=== PATIENT | female | born 1980 | race Caucasian/White ===

== ENCOUNTER 2019-01-26 19:13 | Inpatient (IN) | payer OTHER, SELFPAY ==
[2019-01-26 19:15] VITALS: BP 118/80; PULSE 149; RESP 19; TEMP 36.8; O2SAT 96; BMI 16.5
--- NOTE | 2019-01-26 19:51 | EKG12_ITS ---
Test Reason : SUBSTANCE ABUSE Blood Pressure : / mmHG Vent. Rate : 096 BPM Atrial Rate : 096 BPM P-R Int : 152 ms QRS Dur : 100 ms QT Int : 360 ms P-R-T Axes : 071 079 065 degrees QTc Int : 454 ms Normal sinus rhythm Normal ECG Confirmed by ALLISON JOSHUA, ROXI ([id number]), scientific editor BROCK FRIEDMAN ([id number]) on 01/29/2019 1:03:30 PM Referred By: Chaparro Sultana Confirmed By:ROXI COOPER MD
[2019-01-26 20:07] VITALS: BP 113/67; PULSE 94; RESP 23; O2SAT 96
[2019-01-26 20:10] LABS: Absolute Lymphocyte Count 1.09 X10^3/uL (0.83-4.51); Absolute Neutrophil Count 4.6 X10^3/uL (2.0-7.7); Basophil# 0.05 X10^3/uL; Basophil% 0.8 % (0-1); Eosinophil# 0.05 X10^3/uL; Eosinophils% 0.8 % (0-5); Hematocrit 41.6 % (37-47); Hemoglobin 14.3 g/dL (12.0-15.0); Lymphocyte # 1.09 X10^3/ul (4.0); Lymphocyte % 17.1 % (19-41); Mean Corp Hgb Conc 34.4 g/dL (32-36); Mean Corpuscular Hgb 32.6 pg (27.0-32.0); Mean Platelet Vol. 9.9 fl (6.2-12.0); Monocyte# 0.57 X10^3/uL; Monocyte% 8.9 % (0-10); NRBC Flagged by Analyzer 0 % (0-5); Neutrophil # 4.59 X10^3/uL (2.7-7.7); Neutrophil % 72.1 % (47-70); Platelet Count 165 K/mm3 (150-450); RBC Distribution Width CV 14.2 % (11.6-14.6); RBC Distribution Width SD 49.7 fl (35.1-43.9); Red Blood Count 4.38 M/mm3 (4.2-5.4); White Blood Count 6.4 K/mm3 (4.4-11.0)
[2019-01-26 20:20] LABS: Prothrombin Time (Protime)PT. 12.5 SECONDS (11.7-14.9)
[2019-01-26 20:21] LABS: Partial Thromboplast Time 24.7 Seconds (24.1-36.2)
--- NOTE | 2019-01-26 20:22 | ED.DCSUM_ITS ---
History of Present Illness Chief Complaint: Substance Abuse Informant: Patient, Significant Other Onset: Month(s) Timing: Continuous Quality: Consumes significant amount of alcohol daily Location: Palpitations, anxiety and tremors Current Severity: Moderate Maximum Severity: Moderate Worsened by: Decrease alcohol consumption Relieved by: Nothing Associated Symptoms: Nausea, bruising, agitation, palpitations Narrative: Patient is a 38-year-old woman who admits to consuming 1 to 2 L of vodka a day as well as a sixpack of beer. She was in detox and was sober for several years. She states this is affecting work. She states the past 3 weeks she has been drinking because of symptoms prior to going to work. She does report bruising easily. She denies blood in her urine. She denies black or maroon stool. She denies blood in emesis. She denies orthostatic symptoms. She denies cardiac or respiratory symptoms. She does admit to smoking. She denies drug use. Prior similar symptoms: Yes Recent Illness/Hospitalization: No - Past Medical History (1) Alcoholism /alcohol abuse Status: Acute Past Medical History - Allergies and Home Meds Allergies/Adverse Reactions: Allergies sulfamethoxazole [From Bactrim] Adverse Reaction (Verified 01/26/19 19:19) Nausea/Vom/Diarrhea trimethoprim [From Bactrim] Adverse Reaction (Verified 01/26/19 19:19) Nausea/Vom/Diarrhea Primary Care Physician: Tami Feliz NP-C [Primary Care Provider] - Surgical History: noncontributory Lives: Spouse/ Significant Other Smoking Status: Current every day smoker Alcohol: Heavy Drugs: None Review of Systems General: Reports: Malaise. Denies: Chills, Fever, Sweats, Weight loss Eyes: Denies: Visual changes - bilaterally, Blurred Vision - bilaterally, Diplopia ENT: Denies: Rhinorrhea, Sore throat Cardiovascular: Denies: Chest pain, Palpitations Respiratory: Denies: Dyspnea, Cough, Dyspnea on exertion Gastrointestinal: Reports: Abdominal pain, Nausea. Denies: Vomiting, Diarrhea, Constipation, Melena, Hematochezia Genitourinary: Denies: Dysuria, Hematuria, Frequency Musculoskeletal: Denies: Back pain, Extremity Pain Skin: Denies: Rash, Abrasions, Wounds Neurological: Denies: Headache, Weakness, Parasthesia, Numbness Hematologic: Reports: Easy bruising. Denies: Easy bleeding Physical Exam Vital Signs/Narrative: Vital Signs Temp Pulse Resp BP Pulse Ox 01/26/19 20:07 94 23 H 113/67 96 01/26/19 19:15 98.2 F 149 H 19 H 118/80 96 Inital Vital Signs reviewed: Yes General: Well nourished, Well developed, No Acute Distress Head: Normocephalic, Atraumatic Eyes: Perrl, EOMI. Negative for: Pale conjunctiva, Scleral icterus ENT: Moist mucous membranes, No rhinorrhea, TM's clear Neck: Supple, Nontender, No lymphadenopathy, No JVD, - Cardiovascular: Regular rhythm, No murmurs, Normal S1, Normal S2, Tachycardia Respiratory: No distress, CTA bilaterally, Chest nontender Abdomen: Soft, Nontender, Nondistended, Normal bowel sounds Rectal: Deferred Back: Nontender, Normal Inspection. Negative for: CVA tenderness, Spinal tenderness Extremities: Nontender, No edema Skin: Normal color, No rash, No Trauma. Negative for: Cyanosis, Diaphoresis, Jaundice Neurological: Alert, Oriented x3, Cranial nerves II-XII grossly intact, Normal Strength, Normal Sensation, Normal DTR - DTR 3-4+ symmetric. 4-5 beats of clonus at the ankles. Negative Babinski sign. Psychological: Normal affect, Normal Mood Diagnostic/Tx/Re-eval Laboratory Results 01/26/19 01/26/19 01/26/19 20:00 20:00 20:00 WBC 6.4 RBC 4.38 Hgb 14.3 Hct 41.6 MCV 95.0 MCH 32.6 H MCHC 34.4 RDW Std Deviation 49.7 H RDW Coeff of Opal 14.2 Plt Count 165 MPV 9.9 Immature Gran % (Auto) 0.300 Neut % (Auto) 72.1 H Lymph % (Auto) 17.1 L [place] % (Auto) 8.9 Eos % (Auto) 0.8 Baso % (Auto) 0.8 Absolute Neuts (auto) 4.6 Absolute Lymphs (auto) 1.09 Absolute Nucleated RBC 0.00 Nucleated RBC % 0 PT 12.5 INR 1.0 APTT 24.7 Sodium 137 Potassium 3.7 Chloride 103 Carbon Dioxide 22.0 Anion Gap 12 BUN 14 Creatinine 0.88 Estim Creat Clear Calc 65.04 Est GFR (MDRD) Af Amer 92 Est GFR (MDRD) Non-Af 76 BUN/Creatinine Ratio 16.0 Glucose 168 H Calcium 8.6 Total Bilirubin 0.70 AST 69 H ALT 70 H Alkaline Phosphatase 78 Total Protein 6.9 Albumin 3.8 Globulin 3.1 Albumin/Globulin Ratio 1.2 Ethyl Alcohol 01/26/19 20:00 WBC RBC Hgb Hct MCV MCH MCHC RDW Std Deviation RDW Coeff of Opal Plt Count MPV Immature Gran % (Auto) Neut % (Auto) Lymph % (Auto) [place] % (Auto) Eos % (Auto) Baso % (Auto) Absolute Neuts (auto) Absolute Lymphs (auto) Absolute Nucleated RBC Nucleated RBC % PT INR APTT Sodium Potassium Chloride Carbon Dioxide Anion Gap BUN Creatinine Estim Creat Clear Calc Est GFR (MDRD) Af Amer Est GFR (MDRD) Non-Af BUN/Creatinine Ratio Glucose Calcium Total Bilirubin AST ALT Alkaline Phosphatase Total Protein Albumin Globulin Albumin/Globulin Ratio Ethyl Alcohol 137.0 - EKG Initial EKG Interpretation: Sinus Rhythm - Ventricular rate 96. WV interval 150 ms. QRS duration 100 ms. QT duration 360 ms. Ismay is normal. The EKG is normal. - Medical Decision Making This patient is tachycardic EKG was obtained. Because of bruising easily PT/INR was obtained to assess liver function. Alcohol level was drawn. She states she had her last drink at approximately 1700. CBC was obtained to assess H&H. Electrolyte panel was obtained as well to assess for specifically hypokalemia and hyponatremia. Patient CIWAr?score is 19. Alcohol level is 137. There is no evidence of coagulopathy. ED Disposition - Plan for ED Patient: Disposition: Home or Assisted Living Diagnosis: Sinus tachycardia seen on quality assurance monitor final, Alcohol dependence with withdrawal Referrals: Tami Feliz, SANG-C [Primary Care Provider] -
[2019-01-26 20:36] LABS: ALB/GLOB Ratio 1.2 RATIO (0.9-2.4); AST(SGOT) 69 U/L (15-37); Alanine Aminotransfer ALT/SGPT 70 U/L (13-56); Albumin, Serum 3.8 g/dL (3.2-5.0); Alkaline Phosphatase 78 U/L (45-117); Anion Gap 12 (5-15); BUN 14 mg/dL (7-18); Calcium,Total 8.6 mg/dL (8.5-10.1); Chloride 103 mmol/L (98-107); Creatinine, Serum 0.88 mg/dL (0.55-1.02); EST Glomerular Filtration Rate 76 mL/min (>60); Est Glom Filt Rate - Afr Amer 92 mL/min (>60); Estimated Creatinine Clearance 65.04 ml/min; Globulin 3.1 g/dL (2.2-4.2); Glucose 168 mg/dL (74-106); Potassium 3.7 mmol/L (3.5-5.1); Protein, Total 6.9 g/dL (6.4-8.2); Sodium Level 137 mmol/L (136-145)
[2019-01-26 21:00] VITALS: BP 105/69; PULSE 98; RESP 16; O2SAT 98
[2019-01-26] MEDS: chlordiazePOXIDE 25 MG Capsule PO ×2 (21:25→23:33)
--- NOTE | 2019-01-26 22:03 | PCM.HP.STD ---
Problem List (1) Alcohol dependence with withdrawal Status: Acute History of Present Illness Date of Admission: 01/26/19 Chief Complaint: alcohol withdrawal The patient is a 38 year old F with a significant history of depression and anxiety; tobacco abuse; marijuana abuse; alcohol dependence who presented to the emergency department because of withdrawal symptoms and a desire to be helped to stop drinking. On the day of presentation the patient decided not to drink. However because she felt nauseous and she was vomiting; had diarrhea; diaphoresis; headache; muscle pain to the point that she could not stand; she drank half a liter of vodka. Her symptoms been went away she then proceeded to the emergency department. At the emergency department reportedly patient was having ankle clonus; and was shaky for which reason she was given Librium and phenobarbital. At baseline patient drinks about 1 to 2 L of vodka daily as well as a 6-15 bottle of beers. She thinks that she has been drinking for about 16 years. She went to a rehab around 2016 for about a year and a half. She was about 2 years sober. She thinks she resumed drinking again in 2016. Reportedly her drinking is affecting her ability to work. Past Medical History Medical History: Medical History (Last Updated 01/27/19 @ 01:17 by Chaparro Sultana MD) Alcohol dependence F10.20 Allergies sulfamethoxazole [From Bactrim] Adverse Reaction (Verified 01/26/19 19:19) Nausea/Vom/Diarrhea trimethoprim [From Bactrim] Adverse Reaction (Verified 01/26/19 19:19) Nausea/Vom/Diarrhea Home Medications: Ambulatory Orders Medication Instructions Recorded Escitalopram Oxalate [Lexapro] 20 mg PO DAILY 05/18/17 Surgical History: tonsillectomy, - - section x2 Psychiatric History: Anxiety, Depression Lives: With Family Smoking Status: Current every day smoker Alcohol: Heavy Drugs: Marijuana Review of Systems Constitutional: Denies: Chills, Fever, Weight Change HEENT: Reports: Head Aches, Sinus Drainage. Denies: Sinus Congestion Cardiovascular: Denies: Chest Pain, Palpitations Respiratory: Denies: Cough, Shortness of breath at rest, Sputum production Gastrointestinal: Reports: Diarrhea, Nausea, Vomiting. Denies: Abdominal Pain Genitourinary: Denies: Dysuria Musculoskeletal: Denies: Joint Pain, Joint Tenderness Skin: Denies: Rash, Wounds Neurological: Reports: Tremor. Denies: Focal weakness, Numbness, Tingling Psychiatric: Reports: Anxiety, Depression. Denies: Homicidal Ideations, Suicidal Ideations Hematologic/ Lymphatic: Denies: Easy Bruising, Easy Bleeding VTE Information - Inpt Only VTE Present on Admission: No VTE Mechan Device Prophylaxis: None VTE Pharm Prophylaxis ordered?: No Reason prophylaxis not ordered:: Treatment Not Indicated - Low risk; encouraged to ambulate. Patient Problems: Active and Suspected Problems (Last Updated 01/27/19 @ 01:17 by Chaparro Sultana MD) Alcoholism /alcohol abuse (Acute) Sinus tachycardia seen on diagnostic cardiac sonographer (Acute) Alcohol dependence with withdrawal (Acute) - Physical Exam General: Alert, Oriented x3, Cooperative HEENT: Atraumatic, PERRLA, EOMI, Normocephalic Neck: Supple, No JVD, Negative Carotid Bruits Lungs: Clear to auscultation, Normal air movement Cardiovascular: Regular rate, No murmurs Abdomen: Bowel Sounds Present, Soft, Non Tender Extremities: No edema, Capillary Refill Less than 3 Seconds Skin: No rashes, No breakdown Musculoskeletal: No Tenderness to Palpation of Joints or Extremities Neurological: Cranial nerves II-XII grossly intact, - - Tremors on outstretched hands. Psych/Mental Status: Normal Affect, Appropriate Vital Signs Temp Pulse Resp BP Pulse Ox 98.2 F 98 16 105/69 98 01/26/19 19:15 01/26/19 21:00 01/26/19 21:00 01/26/19 21:00 01/26/19 21:00 Oxygen Delivery Method Room Air Weight: 48 kg Body Mass Index (BMI) 16.5 Laboratory Tests Past 24 Hrs 01/26/19 01/26/19 01/26/19 20:00 20:00 20:00 WBC 6.4 RBC 4.38 Hgb 14.3 Hct 41.6 MCV 95.0 MCH 32.6 H MCHC 34.4 RDW Std Deviation 49.7 H RDW Coeff of Opal 14.2 Plt Count 165 MPV 9.9 Immature Gran % (Auto) 0.300 Neut % (Auto) 72.1 H Lymph % (Auto) 17.1 L [place] % (Auto) 8.9 Eos % (Auto) 0.8 Baso % (Auto) 0.8 Absolute Neuts (auto) 4.6 Absolute Lymphs (auto) 1.09 Absolute Nucleated RBC 0.00 Nucleated RBC % 0 PT 12.5 INR 1.0 APTT 24.7 Sodium 137 Potassium 3.7 Chloride 103 Carbon Dioxide 22.0 Anion Gap 12 BUN 14 Creatinine 0.88 Estim Creat Clear Calc 65.04 Est GFR (MDRD) Af Amer 92 Est GFR (MDRD) Non-Af 76 BUN/Creatinine Ratio 16.0 Glucose 168 H Calcium 8.6 Total Bilirubin 0.70 AST 69 H ALT 70 H Alkaline Phosphatase 78 Total Protein 6.9 Albumin 3.8 Globulin 3.1 Albumin/Globulin Ratio 1.2 Ethyl Alcohol 01/26/19 20:00 WBC RBC Hgb Hct MCV MCH MCHC RDW Std Deviation RDW Coeff of Opal Plt Count MPV Immature Gran % (Auto) Neut % (Auto) Lymph % (Auto) [place] % (Auto) Eos % (Auto) Baso % (Auto) Absolute Neuts (auto) Absolute Lymphs (auto) Absolute Nucleated RBC Nucleated RBC % PT INR APTT Sodium Potassium Chloride Carbon Dioxide Anion Gap BUN Creatinine Estim Creat Clear Calc Est GFR (MDRD) Af Amer Est GFR (MDRD) Non-Af BUN/Creatinine Ratio Glucose Calcium Total Bilirubin AST ALT Alkaline Phosphatase Total Protein Albumin Globulin Albumin/Globulin Ratio Ethyl Alcohol 137.0 Assessment/Plan All Active Problems (Last Updated 01/27/19 @ 01:17 by Chaparro Sultana MD) Alcoholism /alcohol abuse (Acute) Sinus tachycardia seen on diagnostic cardiac sonographer (Acute) Alcohol dependence with withdrawal (Acute) The patient is a 38 year old F with a significant history of alcohol dependence who presented to the emergency department because of withdrawal symptoms and a desire to be helped to stop drinking. Alcohol dependence and withdrawal On presentation her alcohol level was 137. Patient admits excessive alcohol drinking. At the emergency department patient received Librium and phenobarbital because she was shaking. We will continue patient on a CIWA protocol with [facility]. Multivitamins; thiamine and folic acid as well as other supportive medications ordered. PRN Zofran ordered.. Tylenol ordered. PRN Ativan ordered. Patient was counseled. [facility] consult. Tobacco abuse Counseled Nicotine patch ordered Marijuana use Counseled DVT prophylaxis low risk Encouraged to ambulate Code Visit Inpatient E&M: 57803 Init Hosp L3
[2019-01-26 22:18] VITALS: BP 111/75; PULSE 87; RESP 19; O2SAT 96
[2019-01-26 22:59] VITALS: BMI 16.5
[2019-01-26 23:06] VITALS: BMI 16.5
[2019-01-26 23:32] VITALS: PULSE 86
[2019-01-26] MEDS: Dicyclomine 10 MG Capsule 20 MG PO (23:33)
[2019-01-26] MEDS: Methocarbamol 750 MG Tablet PO (23:33)
[2019-01-26] MEDS: hydrOXYzine PAM 25 MG Capsule 50 MG PO (23:34)
[2019-01-26] MEDS: Acetaminophen 325 MG Tablet 650 MG PO (23:48)
[2019-01-27] VITALS (12 sets, daily range): BP systolic 106–131; BP diastolic 62–72; PULSE 77–95; RESP 16–18; TEMP 36.7–37.1; O2SAT 97–100
[2019-01-27] MEDS: Dicyclomine 10 MG Capsule 20 MG PO ×3 (05:34→22:28)
[2019-01-27] MEDS: Methocarbamol 750 MG Tablet PO ×3 (05:34→22:28)
[2019-01-27] MEDS: Acetaminophen 325 MG Tablet 650 MG PO (05:35)
[2019-01-27] MEDS: chlordiazePOXIDE 25 MG Capsule PO ×3 (05:35→17:59)
[2019-01-27] MEDS: hydrOXYzine PAM 25 MG Capsule 50 MG PO ×2 (05:35→12:46)
--- NOTE | 2019-01-27 06:48 | PN_ITS ---
Patient Problems: Active and Suspected Problems (Last Updated 01/27/19 @ 01:17 by Chaparro Sultana MD) Alcoholism /alcohol abuse (Acute) Sinus tachycardia seen on cardiac cath lab manager (Acute) Alcohol dependence with withdrawal (Acute) Subjective: Patient overnight with some improvement but ongoing tremors, diaphoresis, myalgias and general malaise. Today she is requesting transition of her IV PRN Ativan to oral as she notes that her IV is bothering her. Discussed her nutritional status and encouraged her to increase her oral intake with pending nutrition evaluation. Patient notes that her only prior history of rehab was several years prior. Patient denies fevers, chills, nausea, emesis, abdominal pain, chest pain or dyspnea. Objective: Physical Examination: General: awake, alert, oriented x 3 and cooperative, laying in the bed, mildly diaphoretic, mild tremors present. Skin: normal color, turgor, no icterus, cyanosis. HEENT: AT/NC, EOMI, PERRLA, dry MM. Lungs: CTA bilaterally, moderate effort, moderate decrease BL bases, no rales, ronchi or wheezing. Heart: Regular rate and rhythm; no gallop, rub audible. Abdomen: soft, thin cachectic habitus, NTTP, ND. Extremities: no cyanosis, clubbing, or edema. Neurological: patient awake, alert, oriented x 3; cognitive function intact; pupils equally reactive to light and accomodation; cranial nerves II-XII grossly normal, moving all 4 extremities, no focal deficits, strength moderately to severely global decrease secondary to acute presentation, mildly tremulous. Psychiatric: affect appears fatigued, no acute evidence of depressive or anxiety feelings. Vitals/I&O's: Vital Signs Temp Pulse Resp BP Pulse Ox 98.2 F 82 16 113/72 100 01/27/19 02:33 01/27/19 03:35 01/27/19 02:33 01/27/19 02:33 01/27/19 02:33 Oxygen Delivery Method Room Air Weight: 107 lb Body Mass Index (BMI) 16.5 Laboratory Results 01/26/19 20:00: WBC 6.4, RBC 4.38, Hgb 14.3, Hct 41.6, MCV 95.0, MCH 32.6 H, MCHC 34.4, RDW Std Deviation 49.7 H, RDW Coeff of Opal 14.2, Plt Count 165, MPV 9.9, Immature Gran % (Auto) 0.300, Neut % (Auto) 72.1 H, Lymph % (Auto) 17.1 L, [place] % (Auto) 8.9, Eos % (Auto) 0.8, Baso % (Auto) 0.8, Absolute Neuts (auto) 4.6, Absolute Lymphs (auto) 1.09, Absolute Nucleated RBC 0.00, Nucleated RBC % 0 01/26/19 20:00: PT 12.5, INR 1.0, APTT 24.7 01/26/19 20:00: Sodium 137, Potassium 3.7, Chloride 103, Carbon Dioxide 22.0, Anion Gap 12, BUN 14, Creatinine 0.88, Estim Creat Clear Calc 65.04, Est GFR (MDRD) Af Amer 92, Est GFR (MDRD) Non-Af 76, BUN/Creatinine Ratio 16.0, Glucose 168 H, Calcium 8.6, Total Bilirubin 0.70, AST 69 H, ALT 70 H, Alkaline Phosphatase 78, Total Protein 6.9, Albumin 3.8, Globulin 3.1, Albumin/Globulin Ratio 1.2 01/26/19 20:00: Ethyl Alcohol 137.0 Current Medications Acetaminophen (Tylenol) 650 mg PO Q6H PRN PRN PRN Reason: Mild Pain (1-3)/Temp > 100.7 F Last Admin: 01/27/19 05:35 Dose: 650 mg Documented by: Chlordiazepoxide (Librium) 50 mg PO Q6H NARINDER; Taper Stop: 01/30/19 01:59 Last Admin: 01/27/19 05:35 Dose: 50 mg Documented by: Dextrose (D50w Syringe) 0 gm IV X1 PRN; Protocol PRN Reason: Hypoglycemia Dicyclomine HCl (Bentyl) 20 mg PO Q6H PRN PRN PRN Reason: abdominal discomfort Last Admin: 01/27/19 05:34 Dose: 20 mg Documented by: Escitalopram Oxalate (Lexapro) 20 mg PO DAILY NARINDER Folic Acid (Folic Acid) 1 mg PO DAILYCM NARINDER Stop: 01/29/19 08:01 Glucagon () 1 mg IM .X1 PRN PRN Reason: Hypoglycemia Hydroxyzine Pamoate (Vistaril Pamoate Capsule) 50 mg PO Q6H PRN PRN PRN Reason: Mild Anxiety (score 1/3) Last Admin: 01/27/19 05:35 Dose: 50 mg Documented by: Lorazepam (Ativan) 1 mg IV Q4H PRN PRN PRN Reason: Severe Anxiety Lorazepam (Ativan) 2 mg IV X1 PRN PRN Reason: Seizure Magnesium Hydroxide (Milk Of Magnesia) 30 ml PO DAILY PRN PRN PRN Reason: Constipation Methocarbamol (Methocarbamol) 750 mg PO Q6H PRN PRN PRN Reason: Muscle Aches Last Admin: 01/27/19 05:34 Dose: 750 mg Documented by: Multivitamins (Multivitamin) 1 tablet PO DAILYCM NARINDER Nicotine (Nicoderm Cq (Pbkc)) 21 mg TRANSDERM. DAILY NARINDER Last Admin: 01/27/19 05:43 Dose: 21 mg Documented by: Nutritional Formula (Lactose Free) (Ensure Enlive) 120 ml PO 4X/DAY NARINDER Ondansetron HCl (Zofran) 4 mg IV Q8H PRN PRN PRN Reason: NAUSEA/VOMITING Sodium Chloride () 10 - 40 ml IV UD PRN PRN Reason: SALINE FLUSH Thiamine HCl (Vitamin B1) 100 mg PO DAILYCM NARINDER Stop: 01/29/19 08:01 Medical Necessity - Tobacco Use Smoking Status: Current every day smoker Assessment/Plan All Active Problems (Last Updated 01/27/19 @ 01:17 by Chaparro Sultana MD) Alcoholism /alcohol abuse (Acute) Sinus tachycardia seen on cardiac cath lab manager (Acute) Alcohol dependence with withdrawal (Acute) The patient is a 38 y/o F w/ PMHx: Anxiety and Depression, Tobacco use, Cannabis use, Malnutrition, EtOH Abuse who presents to the [facility] ED on 01/26/19 with history of attempted self sobriety, noting that she had attempted to avoid intake over the day of presentation with noted nausea, emesis, headache, myalgia, tremors and hallucinations. (1) Acute EtOH Withdrawal: Admitted to [facility] on telemetry, routine CBC, CMP obtained, pending testing, pending mag and phos, initiated and continue on [facility] service protocol with taper course of librium, as needed Seroquel, Catapres, Bentyl, Vistaril, IV fluids, IV antiemetics, Tylenol. Once patient clinically improved and completion of taper nearing will plan [facility] assistance for transition to next level of rehabilitation care. Mag, phos pending. Maintain on CIWA protocol. (2) Anxiety and depression: Contributing to #1, will continue home Lexapro. Would benefit from counseling outpatient. (3) Severe protein calorie malnutrition: Evidenced per habitus, BMI, muscle and fat loss, supplementation with Ensure, multivitamin, folic acid and thiamine as noted, nutrition consulted. (4) Tobacco Abuse: Encouraged cessation, inpatient consultation per RT, NR if desired. (5) DVT Prophylaxis: Low risk, ambulation. Code Visit Inpatient E&M: 32795 Subs Hosp L2
[2019-01-27 07:35] LABS: Magnesium 1.9 mg/dL (1.6-2.6); Phosphorus 1.9 mg/dL (2.5-4.9)
[2019-01-27] MEDS: Ondansetron ODT 4 MG Tablet PO ×2 (09:45→22:28)
[2019-01-27] MEDS: Multivitamins,Therapeutic Tablet 1 TABLET PO (09:46)
[2019-01-27] MEDS: QUEtiapine 25 MG Tablet PO ×2 (09:46→16:28)
[2019-01-27] MEDS: Thiamine Hydrochloride 100 MG Tablet PO (09:46)
[2019-01-27] MEDS: Folic Acid 1 MG Tablet PO (09:46)
[2019-01-27] MEDS: Escitalopram Oxalate 20 MG Tablet PO (09:46)
[2019-01-27 11:10] LABS: Internal QC Validated? YES +Cl - CLEAR BKGD; Pregnancy, Urine Negative Negative
[2019-01-27] MEDS: 0.9% NaCl IVPB Med Flush (250 mL) 15 ML IV (12:45)
[2019-01-27] MEDS: 0.9% NaCl Peripheral Flush Adult/Peds IV (12:47)
[2019-01-27] MEDS: LORazepam 1 MG Tablet PO ×2 (16:28→22:28)
[2019-01-27] MEDS: traZODone 50 MG Tablet PO (22:28)
[2019-01-27] MEDS: Ibuprofen 600 MG Tablet PO (22:28)
[2019-01-28] VITALS (10 sets, daily range): BP systolic 91–116; BP diastolic 64–79; PULSE 67–90; RESP 14–18; TEMP 36.5–36.8; O2SAT 94–100
[2019-01-28] MEDS: chlordiazePOXIDE 25 MG Capsule PO ×2 (02:04→19:56)
[2019-01-28] MEDS: QUEtiapine 25 MG Tablet PO ×2 (02:04→20:08)
[2019-01-28] MEDS: Acetaminophen 325 MG Tablet 650 MG PO ×3 (02:08→22:39)
[2019-01-28] MEDS: LORazepam 1 MG Tablet PO ×3 (02:50→22:39)
--- NOTE | 2019-01-28 06:49 | PCM.PN.HOSP ---
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 This morning she is very fatigued and falling back asleep quickly during examination. Reviewed medications with nursing staff and she did receive Librium and Ativan near 3 AM. Patient notes that tremors have markedly improved. Patient denies fevers, chills, nausea, emesis, abdominal pain, chest pain or dyspnea. Objective: Physical Examination: General: awakens to stimuli, less alert this AM, oriented to self, place, recent events, but falling back asleep, laying in the bed, NAD. Skin: normal color, turgor, no icterus, cyanosis. HEENT: AT/NC, EOMI, PERRLA, improved MMM. Lungs: CTA bilaterally, moderate effort, moderate decrease BL bases, no rales, ronchi or wheezing. Heart: Regular rate and rhythm; no gallop, rub audible. Abdomen: soft, thin cachectic habitus, NTTP, ND. Extremities: no cyanosis, clubbing, or edema. Neurological: awakens to stimuli, less alert this AM, oriented to self, place, recent events, but falling back asleep, laying in the bed, NAD; pupils equally reactive to light and accomodation; cranial nerves II-XII grossly normal, moving all 4 extremities, no focal deficits, strength remains moderately to severely global decreased given recent sedative regimen, tremors resolved. Psychiatric: affect appears fatigued, no acute evidence of depressive or anxiety feelings. Vitals/I&O's: Vital Signs Temp Pulse Resp BP Pulse Ox 97.8 F 77 16 116/67 98 01/28/19 02:01 01/28/19 02:01 01/28/19 02:01 01/28/19 02:01 01/28/19 02:01 Oxygen Delivery Method Room Air Weight: 106 lb 15.986 oz Body Mass Index (BMI) 16.5 Intake and Output for Last 24 Hours 01/26/19 01/27/19 01/28/19 23:59 23:59 23:59 Intake Total 900 / 1100 200 / 200 Balance 900 / 1100 200 / 200 Laboratory Results 01/26/19 20:00: Phosphorus 1.9 L, Magnesium 1.9 01/27/19 10:10: Urine Test Negative Current Medications Acetaminophen (Tylenol) 650 mg PO Q6H PRN PRN PRN Reason: Mild Pain (1-3)/Temp > 100.7 F Last Admin: 01/28/19 02:08 Dose: 650 mg Documented by: Al Hydroxide/Mg Hydroxide (Mylanta Ii) 30 ml PO Q6H PRN PRN PRN Reason: dyspesia Bisacodyl (Dulcolax) 10 mg RECTAL DAILY PRN PRN Reason: Constipation Chlordiazepoxide (Librium) 50 mg PO Q8H NARINDER; Taper Stop: 01/30/19 01:59 Last Admin: 01/28/19 02:04 Dose: 50 mg Documented by: Dextrose (D50w Syringe) 0 gm IV X1 PRN; Protocol PRN Reason: Hypoglycemia Dicyclomine HCl (Bentyl) 20 mg PO Q6H PRN PRN PRN Reason: abdominal discomfort Last Admin: 01/27/19 22:28 Dose: 20 mg Documented by: Escitalopram Oxalate (Lexapro) 20 mg PO DAILY [facility] Last Admin: 01/27/19 09:46 Dose: 20 mg Documented by: [facility] Acid) [facility] Stop: 01/29/19 08:01 Last Admin: 01/27/19 09:46 Dose: 1 mg Documented by: Glucagon () 1 mg IM .X1 PRN PRN Reason: Hypoglycemia Hydroxyzine Pamoate (Vistaril Pamoate Capsule) 50 mg PO Q6H PRN PRN PRN Reason: Mild Anxiety (score 1/3) Last Admin: 01/27/19 12:46 Dose: 50 mg Documented by: Sodium Chloride () 250 mls @ 15 mls/hr IV .[id number] PRN PRN Reason: SALINE FLUSH Last Admin: 01/27/19 12:45 Dose: 15 mls/hr Documented by: Ibuprofen (Motrin) 600 mg PO Q8H PRN PRN PRN Reason: Mild-Moderate Pain (1-5/10) Last Admin: 01/27/19 22:28 Dose: 600 mg Documented by: Loperamide HCl (Imodium) 2 - 4 mg PO UD PRN PRN Reason: LOOSE STOOLS Lorazepam (Ativan) 2 mg IV X1 PRN PRN Reason: Seizure Lorazepam (Ativan) 1 mg PO Q4H PRN PRN PRN Reason: EtOH withdrawal breakthrough Last Admin: 01/28/19 02:50 Dose: 1 mg Documented by: Magnesium Hydroxide (Milk Of Magnesia) 30 ml PO DAILY PRN PRN PRN Reason: Constipation Methocarbamol (Methocarbamol) 750 mg PO Q6H PRN PRN PRN Reason: Muscle Aches Last Admin: 01/27/19 22:28 Dose: 750 mg Documented by: Multivitamins (Multivitamin) [facility] Last Admin: 01/27/19 09:46 Dose: 1 tablet Documented by: Nicotine (Nicoderm Cq (Pbkc)) 21 mg TRANSDERM. DAILY [facility] Last Admin: 01/27/19 05:43 Dose: 21 mg Documented by: Nutritional Formula (Lactose Free) (Ensure Enlive) 120 ml PO 4X/DAY [facility] Last Admin: 01/27/19 22:11 Dose: Not Given Documented by: Ondansetron HCl (Zofran) 4 mg IV Q8H PRN PRN PRN Reason: NAUSEA/VOMITING Ondansetron HCl (Zofran Odt) 4 mg PO Q6H PRN PRN PRN Reason: NAUSEA Last Admin: 01/27/19 22:28 Dose: 4 mg Documented by: Quetiapine Fumarate (Seroquel) 25 mg PO Q6H PRN PRN PRN Reason: anxiety, agitation Last Admin: 01/28/19 02:04 Dose: 25 mg Documented by: Senna (Senokot) 1 tablet PO QHS PRN PRN PRN Reason: Constipation Sodium Chloride () 10 - 40 ml IV UD PRN PRN Reason: SALINE FLUSH Last Admin: 01/27/19 12:47 Dose: 10 ml Documented by: Thiamine HCl (Vitamin B1) [facility] Stop: 01/29/19 08:01 Last Admin: 01/27/19 09:46 Dose: 100 mg Documented by: Trazodone HCl (Desyrel) 50 mg PO QHS [facility] Last Admin: 01/27/19 22:28 Dose: 50 mg Documented by: Medical Necessity - Tobacco Use Smoking Status: Current every day smoker Assessment/Plan All Active Problems (Last Updated 01/27/19 @ 01:17 by Chaparro Sultana MD) Alcoholism /alcohol abuse (Acute) 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 (1) Acute EtOH Withdrawal: Admitted to [facility] on telemetry, CBC unremarkable, CMP w/ elevated LFTs, mild and likely chronic, unremarkable coags, initiated and continue on [facility] service protocol with taper course of librium, as needed Seroquel, Catapres, Bentyl, Vistaril, IV fluids, IV antiemetics, Tylenol. Once patient clinically improved and completion of taper nearing will plan [facility] assistance for transition to next level of rehabilitation care. Mag 1.9, Phos 1.9, supplementation administered. Maintain on CIWA protocol. (2) Anxiety and depression: Contributing to #1, will continue home Lexapro. Would benefit from counseling outpatient. (3) Severe protein calorie malnutrition: Evidenced per habitus, BMI, muscle and fat loss, supplementation with Ensure, multivitamin, folic acid and thiamine as noted, nutrition consulted. (4) Chronically Elevated LFTs: Likely secondary to EtOH abuse, admission AST/ALT 69/70, will encourage follow-up outpatient with PCP for further assessment. (5) Tobacco Abuse: Encouraged cessation, inpatient consultation per RT, NR if desired. (6) DVT Prophylaxis: Low risk, ambulation. Code Visit Inpatient E&M: 17954 Subs Hosp L2
[2019-01-28] MEDS: Thiamine Hydrochloride 100 MG Tablet PO (10:12)
[2019-01-28] MEDS: Multivitamins,Therapeutic Tablet 1 TABLET PO (10:12)
[2019-01-28] MEDS: Folic Acid 1 MG Tablet PO (10:12)
[2019-01-28] MEDS: Escitalopram Oxalate 20 MG Tablet PO (10:12)
[2019-01-28] MEDS: Dicyclomine 10 MG Capsule 20 MG PO ×2 (14:47→22:38)
[2019-01-28] MEDS: Ondansetron ODT 4 MG Tablet PO (14:47)
[2019-01-28] MEDS: Methocarbamol 750 MG Tablet PO ×2 (14:47→22:38)
[2019-01-28] MEDS: hydrOXYzine PAM 25 MG Capsule 50 MG PO (14:49)
[2019-01-28] MEDS: Ibuprofen 600 MG Tablet PO (20:07)
[2019-01-28] MEDS: traZODone 50 MG Tablet PO (22:22)
[2019-01-29] VITALS (8 sets, daily range): BP systolic 101–116; BP diastolic 47–72; PULSE 67–84; RESP 14–16; TEMP 36.2–36.3; O2SAT 94–100
[2019-01-29] MEDS: hydrOXYzine PAM 25 MG Capsule 50 MG PO (00:31)
[2019-01-29] MEDS: chlordiazePOXIDE 25 MG Capsule PO (02:30)
[2019-01-29] MEDS: QUEtiapine 25 MG Tablet PO ×2 (02:30→08:11)
[2019-01-29] MEDS: LORazepam 1 MG Tablet PO ×2 (02:42→06:49)
[2019-01-29] MEDS: Ibuprofen 600 MG Tablet PO (05:02)
[2019-01-29] MEDS: Methocarbamol 750 MG Tablet PO (05:02)
[2019-01-29] MEDS: Dicyclomine 10 MG Capsule 20 MG PO (05:10)
[2019-01-29] MEDS: Ondansetron ODT 4 MG Tablet PO (05:10)
[2019-01-29] MEDS: Folic Acid 1 MG Tablet PO (08:03)
[2019-01-29] MEDS: Thiamine Hydrochloride 100 MG Tablet PO (08:03)
[2019-01-29] MEDS: Multivitamins,Therapeutic Tablet 1 TABLET PO (08:03)
[2019-01-29] MEDS: Escitalopram Oxalate 20 MG Tablet PO (08:03)
[2019-01-29] MEDS: Acetaminophen 325 MG Tablet 650 MG PO (08:11)
[2019-01-29 08:13] LABS: ALB/GLOB Ratio 1.2 RATIO (0.9-2.4); AST(SGOT) 44 U/L (15-37); Alanine Aminotransfer ALT/SGPT 63 U/L (13-56); Albumin, Serum 3.7 g/dL (3.2-5.0); Alkaline Phosphatase 71 U/L (45-117); Anion Gap 8 (5-15); BUN 10 mg/dL (7-18); BUN/Creat Ratio 14.7 RATIO (10-20); Calcium,Total 8.9 mg/dL (8.5-10.1); Chloride 106 mmol/L (98-107); Creatinine, Serum 0.68 mg/dL (0.55-1.02); EST Glomerular Filtration Rate 102 mL/min (>60); Est Glom Filt Rate - Afr Amer 123 mL/min (>60); Globulin 3.1 g/dL (2.2-4.2); Glucose 82 mg/dL (74-106); Magnesium 1.9 mg/dL (1.6-2.6); Potassium 4.2 mmol/L (3.5-5.1); Protein, Total 6.8 g/dL (6.4-8.2); Sodium Level 142 mmol/L (136-145)
--- NOTE | 2019-01-29 09:28 | PCM.DC ---
- Discharge Diagnoses Current Active Problems: Current Active and Chronic Problems (Last Updated 01/27/19 @ 01:17 by Chaparro Sultana MD) Alcoholism /alcohol abuse (Acute) Sinus tachycardia seen on cardiac specialist (Acute) Alcohol dependence with withdrawal (Acute) Reason(s) for Visit for Discharge Instructions: Alcohol withdrawal You will use the following diet at home:: Regular Your food should be the consistency of: Regular Your liquids should be the consistency of: Regular/Thin Discharge Activity: Return to Normal Activity Additional Instructions: You are strongly advised to abstain from alcohol. Follow-up with your outpatient program as planned. Continue to take mylanta and famotidine for abdominal discomfort and bloatedness. Avoid taking Ibuprofen until your abdominal upset settles. Continue to take tylenol as directed as needed for pain. You have been strongly advised to quit smoking. Allergies/Adverse Reactions: Allergies sulfamethoxazole [From Bactrim] Adverse Reaction (Verified 01/26/19 19:19) Nausea/Vom/Diarrhea trimethoprim [From Bactrim] Adverse Reaction (Verified 01/26/19 19:19) Nausea/Vom/Diarrhea Medications to take at Discharge Escitalopram Oxalate [Lexapro] 20 mg PO DAILY 05/18/17 Acetaminophen [Tylenol Tablet] 650 mg PO Q6H PRN PRN tablet 01/29/19 Ensure Enlive 120 ml PO 4X/DAY #120 liquid 01/29/19 Famotidine [Pepcid] 20 mg PO BID #60 tab 01/29/19 Magnesium Oxide [Mag-Ox 400] 400 mg PO TIDCM #90 tab 01/29/19 Multivitamins,Therapeutic [Multivitamin] 1 tab PO DAILYCM #30 tab 01/29/19 Nicotine [Nicoderm Cq] 21 mg TRANSDERM. DAILY #30 patch 01/29/19 The following prescriptions were given: Ensure Enlive 120 ml PO 4X/DAY #120 liquid Transmission Status: Pending to [facility] [place] [place] [facility] Magnesium Oxide [Mag-Ox 400] 400 mg PO TIDCM #90 tab Transmission Status: Pending to [facility] [place] [facility] Multivitamins,Therapeutic [Multivitamin] 1 tab PO DAILYCM #30 tab Transmission Status: Pending to [facility] [place] [facility] Nicotine [Nicoderm Cq] 21 mg TRANSDERM. DAILY #30 patch Transmission Status: Pending to [facility] [place] [facility] Famotidine [Pepcid] 20 mg PO BID #60 tab Transmission Status: Pending to [facility] [place] [facility] Primary Care Physician: Tami Feliz NP-C [Primary Care Provider] - Please follow up with your Primary Care Physician in: within 1-2 weeks or as scheduled Test Results: Test results from this visit will be discussed in further detail at your follow-up appointment, if applicable. Proposed Discharge Date: 01/29/19
--- NOTE | 2019-01-29 09:32 | PCM.DC.SUM ---
Discharge Date and Diagnosis Date of Admission: 01/26/19 Date of Discharge: 01/29/19 - Primary Discharge Diagnosis Active and Suspected Problems (Last Updated 01/27/19 @ 01:17 by Chaparro Sultana MD) Acute alcohol withdrawal Severe protein calorie malnutrition Nicotine dependence Hospital Course and Treatment Consultations 01/27/19 01:13 Consult: [facility] [employer] Routine Consulting Provider: Consulted Physician Type:: Other * Specify below * Reason for consult:: Alcohol dependence and withdrawal Operations: None Procedures: None Summary of Care Provided: The patient is a 38 year old F with past medical history of polysubstance use, anxiety/depression, comes in with complaints of nausea, vomiting, headache, myalgia, tremors and hallucinations and was admitted and managed as acute alcohol withdrawal. She admits to drinking about 1 to 2 L of vodka every day as well as 6-15 bottles of beer. She has been drinking since she was 15 years old. She was able to quit and was sober for 2 years until her relapse. She was admitted and did well on the [facility] protocol. She was continued on her home Lexapro. She has chronically elevated LFTs which was secondary to her alcohol abuse. She was started on nutritional supplements for severe protein calorie malnutrition as well as multivitamin, folic acid, thiamine, and was followed by a dietitian. She was found to be hypomagnesemic that was replaced. She was maintained on nicotine replacement with patches for which she was prescribed. She will follow-up with outpatient program such as 180 and also with her pastorial team. Subjective: On the day of discharge, patient was seen and examined. Complaining of mild abdominal discomfort with bloating. She was prescribed Mylanta and famotidine. - Physical Exam General: Alert, Oriented x3, Cooperative, No apparent distress HEENT: Atraumatic, PERRLA, EOMI, Normocephalic Oral: Moist Mucosa Neck: Supple Lungs: Clear to auscultation, Normal air movement Cardiovascular: Regular rate, Regular Rhythm, Normal S1, Normal S2, No murmurs Abdomen: Bowel Sounds Present, Soft, Non Tender, Non-Distended, No Hepato-splenomegaly Extremities: No edema Skin: No rashes, No breakdown Musculoskeletal: No Tenderness to Palpation of Joints or Extremities Lymphatic: No Cervical, Supraclavicular, or Inguinal Adenopathy Neurological: Cranial nerves II-XII grossly intact, Neuro grossly intact Psych/Mental Status: Normal Affect, Appropriate Vital Signs Temp Pulse Resp BP Pulse Ox 97.4 F L 84 16 116/64 98 01/29/19 06:47 01/29/19 06:47 01/29/19 06:47 01/29/19 06:47 01/29/19 07:32 Oxygen Delivery Method Room Air Weight: 48.534 kg Body Mass Index (BMI) 16.5 Intake and Output for Last 24 Hours 01/27/19 01/28/19 01/29/19 23:59 23:59 23:59 Intake Total 900 / 1100 1600 / 1600 1000 / 1000 Balance 900 / 1100 1600 / 1600 1000 / 1000 Laboratory Tests Past 24 Hrs 01/29/19 07:44 Sodium 142 Potassium 4.2 Chloride 106 Carbon Dioxide 28.0 Anion Gap 8 BUN 10 Creatinine 0.68 Estim Creat Clear Calc 85.10 Est GFR (MDRD) Af Amer 123 Est GFR (MDRD) Non-Af 102 BUN/Creatinine Ratio 14.7 Glucose 82 Calcium 8.9 Magnesium 1.9 Total Bilirubin 0.50 AST 44 H ALT 63 H Alkaline Phosphatase 71 Total Protein 6.8 Albumin 3.7 Globulin 3.1 Albumin/Globulin Ratio 1.2 Discharge Diet: No Restrictions Discharge Activity: Return to Normal Activity Home Medications: Medications to take at Discharge Escitalopram Oxalate [Lexapro] 20 mg PO DAILY 05/18/17 Acetaminophen [Tylenol Tablet] 650 mg PO Q6H PRN PRN tab 01/29/19 Ensure Enlive 120 ml PO 4X/DAY #120 liquid 01/29/19 Famotidine [Pepcid] 20 mg PO BID #60 tab 01/29/19 Magnesium Oxide [Mag-Ox 400] 400 mg PO TIDCM #90 tab 01/29/19 Multivitamins,Therapeutic [Multivitamin] 1 tab PO DAILYCM #30 tab 01/29/19 Nicotine [Nicoderm Cq] 21 mg TRANSDERM. DAILY #30 patch 01/29/19 Following Prescrptions Were Given to Patient: Ensure Enlive 120 ml PO 4X/DAY #120 liquid Transmission Status: Received by [facility] [place] [facility] Magnesium Oxide [Mag-Ox 400] 400 mg PO TIDCM #90 tab Transmission Status: Received by [facility] [place] [facility] Multivitamins,Therapeutic [Multivitamin] 1 tab PO DAILYCM #30 tab Transmission Status: Received by [facility] [place] [facility] Nicotine [Nicoderm Cq] 21 mg TRANSDERM. DAILY #30 patch Transmission Status: Received by [facility] [place] [facility] Famotidine [Pepcid] 20 mg PO BID #60 tab Transmission Status: Received by [facility] [place] [facility] Primary Care Physician: Tami Feliz NP-C [Primary Care Provider] - Please follow up with your Primary Care Physician in: within 1-2 weeks or as scheduled Disposition: Home Minutes spent on discharge:: 30 Patient Condition:: Stable Medical Necessity - Tobacco Use Smoking Status: Current every day smoker Tobacco Use: Cigarettes Meaningful Use Info Meaningful Use Diagnoses (Choose all that apply): None applicable Code Visit Inpatient E&M: 52979 Disch Hosp
[2019-01-29] MEDS: Magnesium Oxide 400 MG Tablet PO (10:47)
[2019-01-29] MEDS: Famotidine 20 MG Tablet PO (10:56)
--- NOTE | 2019-01-29 12:49 | NEWVISION ---
Met with patient to discuss aftercare. Patient stated that she knows that until she gets closer to her benjamin she won't recover. Client referred to [facility] in [place] and Counts include 234 beds at the [facility] as well as [facility]jamin based NA/AA style meetings in the [place] area.
== END 2019-01-29 11:00 | disposition home or self-care (01) | DRG 896 ==
LOC: ED 21:44 → MS3 23:25
PROVIDERS: Family Medicine; Admitting Provider Hospitalist; Emergency Provider Emergency Medicine; Family Provider Nurse Practitioner Family; PCP Nurse Practitioner Family; Referring Provider Hospitalist; Visit Provider Internal Medicine
DX: F10.239 Alcohol dependence with withdrawal, unspecified (principal); E43 Unspecified severe protein-calorie malnutrition; Z68.1 Body mass index [BMI] 19.9 or less, adult; F12.90 Cannabis use, unspecified, uncomplicated; Y90.6 Blood alcohol level of 120-199 mg/100 ml; F17.210 Nicotine dependence, cigarettes, uncomplicated
CPT/HCPCS: 36415; 80053; 80320; 81025; 83735; 84100; 85025; 85610; 85730; 93005; 97802; 99285; 99406; J7050; A4216; G0480

== ENCOUNTER 2020-02-26 12:20 | Day surgery (SDC) | payer MEDICAID, SELFPAY ==
--- NOTE | 2020-02-25 | IMM_PTH ---
PATIENT: ALLEY TSAI LOC: [facility] U#:[id number] AGE/SX: 39/F ROOM: RE02/26/[address]: Dr. Noelle Duncan MD : 1980 BED: DIS: 02/26/2020 SPEC #: [id number] RECD: 03/03/20 12:17 STATUS: SHY REQ #: [id number] MARGE: 02/25/20 00:[address]: Noelle Duncan DEPT: IMMUNOHISTOCHEMISTRY RECD BY: Keturah Cabrales ENTERED: 03/03/20 12:19 SP TYPE: IMMUNO OTHR DR: Dr. Marcio Giordano MD No Primary Care Phys Tissues: Right breast, NOS Procedures: CK8 (initial) E-CAD (add) PHYSICIAN & INSTITUTION [place] [id number] SPECIMEN INFORMATION: Tissue Source: Right breast biopsy Clinical Info: Right breast [facility] Specimen Number: [id number] #7 CPT code: 16603, 40845 METHODOLOGY: Deparaffinized sections of prefer/formalin-fixed tissue or PAP/DQ stained slides are incubated with monoclonal/polyclonal antibodies/oligonucleotide probes. Localization is made via biotin free immunoperoxidase method. Appropriate controls are performed and reacted as expected. Results on target cell population are indicated in the following table: RESULTS: ANTIBODY / CLONE RESULT Block 7 CK8 ([id number]) positive E-Cad (ECH-6) negative These tests were developed and their performance characteristics determined by [facility]. They may not have been cleared or approved by the U.S. Food and Drug Administration. The FDA has determined that such clearance or approval is not necessary. The above immunohistochemical/dualISH markers are ordered and reviewed by the Pathologist. INTERPRETATION: Right breast, biopsy: Focal atypical lobular hyperplasia. KATHIE:yamile 03/03/20
--- NOTE | 2020-02-25 14:59 | BRBX_PTH ---
PATIENT: ALLEY TSAI [place] [facility] [place][id number] AGE/SX: 39/F ROOM: RE02/26/[address]: Dr. Noelle Duncan MD : 1980 BED: DIS: 02/26/2020 SPEC #: [id number] RECD: 02/26/20 15:07 STATUS: SHY REKaylin #: [id number] MARGE: 02/25/20 14:[address]: Noelle Duncan DEPT: SURGICAL PATHOLOGY RECD BY: Boris Sotomayor ENTERED: 02/27/20 08:51 SP TYPE: BREAST BX OTHR DR: Dr. Marcio Giordano MD No Primary Care Phys Tissues: Right breast, NOS Procedures: Surgery Specimen Level V HEADER OPERATION: Right breast biopsy, needle localization PRE-OP DIAGNOSIS: Right breast [facility] TISSUE SUBMITTED: Right breast biopsy MICROSCOPIC DIAGNOSIS Right breast, excisional biopsy with needle localization: Focal fibroadenomatous changes. Focal dense fibrosis. Focal atypical lobular hyperplasia. Changes consistent with previous biopsy site. Focal microcalcification. Negative for malignancy. See comment. KATHIE:yamile 03/03/20 COMMENT Immunohistochemistry ([id number]) supports the diagnosis of focal atypical lobular hyperplasia. Case has been reviewed in consultation with Dr. Wick who concurs with the above diagnosis. IDC:AM MICROSCOPIC DESCRIPTION Slides are reviewed. GROSS DESCRIPTION Received fresh and then post-fixed in formalin is one container labeled with the patient's name and designated right breast biopsy. The specimen consists of an unoriented piece of fibroadipose tissue with needle localization measuring 4.5 x 3.5 x 2 cm. The specimen is inked and serially sectioned and reveals predominantly yellow adipose cut surfaces with focal fibrous area. The fibrous area measures 2.5 x 1.5 x 2 cm. The entire specimen is submitted in 12 cassettes from one end to another end. The fibrous area is present in cassettes 9-12. Sections will be submitted after additional fixation. / KATHIE:yamile 02/28/20 TC:5 CPT: 01999
[2020-02-26] VITALS (7 sets, daily range): BP systolic 101–118; BP diastolic 65–83; PULSE 72–84; RESP 14–16; TEMP 36.3–37.1; O2SAT 99–100; BMI 19.3
[2020-02-26 12:43] LABS: Internal QC Validated? YES +Cl - CLEAR BKGD; Pregnancy, Urine Negative Negative
[2020-02-26] MEDS: Lactated Ringers 1,000 ML 100 ML IV (12:50)
--- NOTE | 2020-02-26 14:09 | PCM.HP.BLA ---
History and Physical Date of Admission: 02/26/20 HISTORY AND PHYSICAL ? Herlinda Parekh 1980 ? ? REFERRING PHYSICIAN: Cleveland Virgen, DO ? CHIEF COMPLAINT: No chief complaint on file. ? HPI: The patient is a 39 year old female findings of PASH on right breast biopsy. Herlinda is s/p right US guided breast biopsy done on 01/16/2020 Pathology reveals: FINAL DIAGNOSIS Right breast tissue, core needle biopsy - Fibroadenomatoid change and foci of pseudoangiomatous stromal hyperplasia. Patient denies any problems from the biopsy. ? ? PAST MEDICAL HISTORY Diagnosis Date ? Alcoholism (HCC) ? ? Anxiety ? ? Depression ? ? Panic attacks ? ? PAST SURGICAL HISTORY Procedure Laterality Date ? DELIVERY ONLY ? 1999, 2003 ? x 2 ? CHOLECYSTECTOMY ? 2000 ? LIGATE FALLOPIAN TUBE ? ? ? Tubal ligation ? REMOVAL ADENOIDS,SECOND,12+ Y/O ? 1993 ? TONSILLECTOMY HX ? 1993 ? ? Current Outpatient Medications Medication Sig ? FLUoxetine HCl (PROZAC) 40 mg capsule Take 40 mg by mouth every morning. ? QUEtiapine (SEROQUEL) 50 mg tablet 1 tab by mouth every evening ? hydrOXYzine pamoate (VISTARIL) 25 mg capsule Take 1 capsule by mouth three times daily as needed. ? ? ALLERGIES: Patient has no known allergies. ? PERSONAL HISTORY: Social History ? Tobacco Use ? Smoking status: Current Every Day Smoker ? ? Packs/day: 0.50 ? ? Last attempt to quit: 08/15/2012 ? ? Years since quittin.4 ? Smokeless tobacco: Never Used Substance Use Topics ? Alcohol use: Yes ? Drug use: Never ? FAMILY HISTORY Problem Relation Age of Onset ? Heart Paternal Grandmother ? ? CAD ? Heart Paternal Grandfather ? ? CAD ? Stroke Paternal Grandfather ? ? x 2 ? Diabetes Paternal Grandfather ? ? ? The review of systems data was entered by the nurse and reviewed by me ? Nursing Notes: REVIEW OF SYSTEMS: ?General:???The patient NOTES fatigue, denies weight loss, denies weight gain, denies feeling hot, and NOTES feelings of cold. ?Eyes: ?The patient denies glaucoma, denies eye injury/surgery, wears glasses or contacts. ?Ear/Nose/Throat: ?The patient denies allergies, denies hayfever, denies ear infections, and denies bloody noses. ?Cardiovascular: ?The patient denies chest pain, denies heart disease, denies high blood pressure,denies cardiac stent, denies prior heart attack, denies irregular heart beat, denies high cholesterol, ?denies poor circulation, denies heart failure, other cardiac issues, denies claudication, denies cold feet, denies peripheral arterial stent. ?Respiratory: ?The patient denies tuberculosis, denies pneumonia, denies frequent cough, denies pulmonary embolism, denies shortness of breath, and denies coughing up blood. ?Gastrointestinal: ?The patient denies difficulty swallowing, denies acid reflux, denies ulcers, denies vomiting, denies jaundice/hepatitis, NOTES gallbladder problems, denies black or tarry stools, denies hemorrhoids, denies bleeding from rectum, denies diverticulitis, denies constipation, denies diarrhea, denies loss of stool control, and denies hernias. ?Kidney/Bladder: ?The patient denies kidney stones, denies urine infections, and denies bloody urine. ?Skin: ?The patient denies a history of skin cancer, denies bleeding/changing moles, and denies a history of skin rash. ?Neurologic: ?The patient denies a history of epilepsy/convulsions, NOTES headaches, denies head/spinal injuries, and denies stroke/TIA. ?Psychiatric: ?The patient denies psychiatric medications, NOTES depression, and denies voices, NOTES substance abuse, is a recovering alcoholic ?Endocrine: ?The patient denies thyroid disorders, denies diabetes, and denies hormonal problems. ?Hematologic: ?The patient denies a history of bruising, denies bleeding, and denies anemia, denies blood clots. ?Infections: ?The patient denies a history of measles and mumps, denies rheumatic fever, and denies sexually transmitted diseases. ?Musculoskeletal: ?The patient NOTES back pain/injury, NOTES back problems, denies sciatica, denies knee/foot trouble, denies arthritis, or denies gout. ?Obstetrical: menarche onset 11, , first at age 19, denies breast feeding, BCP use initially 16 for 3-4 y, used DEPO at age 22 for 1 y When was patient's last Mammogram screening? 12/2019 ?Last Colonoscopy: ?none Neelima Miller LPN ? ? PHYSICAL EXAMINATION: General: ?The patient is 39 year old female, well nourished, well hydrated in no acute distress. ?The patient is oriented to time, place, and person. VITALS:?Blood pressure 102/60, pulse 85, temperature 36.8 ?C (98.3 ?F), temperature source Temporal, resp. rate 12, height 170.2 cm (5' 7), weight 54.9 kg (121 lb), last menstrual period 11/23/2019, SpO2 100 %.?Body mass index is 18.95 kg/m?.? Head ??Normocephalic. EOM intact with sclera clear and no icterus noted. Mouth with mucus membranes moist. Neck - supple with no jugular venous distention noted. Trachea is midline. No carotid bruits noted. No thyroid enlargement or thyroid nodules detected. No masses noted. Chest/breast ??no asymmetry of breasts noted, no suspicious skin lesions noted - biopsy site is healed, no nipple discharge and both nipples everted, dense breast tissue palpated at upper aspect of right breast with no definitive discrete mass Lungs ??clear to auscultation. Normal breath sounds. No rales/rhonchi/wheezing noted. No labored breathing noted, such as retractions. No cough heard. Heart ??normal S1 and S2 auscultated. No rubs/clicks/murmurs noted. Regular rate. Abdomen ??soft and benign. Normal bowel sounds No abdominal bruits noted. . Extremities ??no calf tenderness noted. No pitting edema noted. Skin ??normal skin integrity. Lymph ??no cervical adenopathy detected, no supraclavicular adenopathy detected, no axillary adenopathy detected Neurological ??gait normal, no focal deficits noted Psych ??calm and appropriate ? ? IMPRESSION: right breast PASH ? PLAN: I have discussed the above with the patient and her who is present with her. I have offered the following - continued observation with follow up right breast radiographs in 6 months versus right breast biopsy via wire localization. She chooses latter. I have explained the procedure to the patient. I have counseled the patient as to the risks of the procedure, including but not limited to: infection, bleeding, injury to any blood vessels/nerves, scar tissue, wound infections, cosmetic deformity, complications of anesthesia, etc. ? the patient understands. The patient wishes to proceed. She wishes to have procedure at [facility]. ? ? The patient was offered a surgery/procedure. The provider and patient have discussed in detail the risk of exposure to and/or potential harm posed by the COVID-19 virus with having a surgery/procedure at this time versus the risk of? delaying the surgery/procedure. It is not possible to know either the risk of delaying the surgery or procedure or chance of getting an infection with perfect accuracy, but a joint decision was made between the patient and the provider ?to proceed at this time with the scheduled surgery/procedure. ? I have answered all questions to the patient?s satisfaction and the patient has no further questions.
[2020-02-26] MEDS: Cefazolin 2 GM in 0.9% Normal Saline 100 ML IV (14:25)
--- NOTE | 2020-02-26 15:14 | OP.PCM_ITS ---
Report of Operation Date of Procedure: 02/26/20 Pre-Operative Diagnosis: right breast PASH Post-Operative Diagnosis: same Surgery/Procedure Performed:: right breast biopsy via wire localization Description of Surgical Findings:: right breast tissue with dense stromal fibrosis Type of Anesthesia:: Local MAC Anesthesiologist: Tammie Sarkar Specimen's removed: right breast tissue Estimated Blood Loss (mL): < 5 ml Fluids Replaced: 800 ml RL Description of Procedure: After informed consent was given, the patient was brought into the Breast Stereotactic Radiology suite. Appropriate time out protocol was followed. The patient was then placed in the prone position on the [place] stereotactic table. The patient?s right breast was placed in the opening at the head of the table. A environmental manager compression mammogram was then obtained in the CC view. The marker clip that was previously placed was identified. Stereo pictures of the lesion were then taken for XYZ coordinates. The Kopans needle was then positioned where it would be entering into the patient?s breast. The skin at this site was then cleansed with a surgical skin preparation. The skin and subcutaneous tissues at this site were then infiltrated with 1% xylocaine. The Kopans needle was then positioned into the patient?s breast at the proper coordinates of depth. A environmental manager film was obtained which revealed the wire in proper position. The patient was then placed in the supine position and the wire was taped into place. A unilateral mammogram in the CC and MLO view were then taken for use in the OR. The patient tolerated this portion of the procedure well and was brought to the AC awaiting surgery in the OR. The patient was then brought to the Operating Room. Appropriate time out protocol was followed. The patient was then placed on the operating table in the supine position. A wire had already been placed in the stereotactic biopsy room in the radiology department as described above. The right breast with the wire in placed was then prepped with a sterile surgical skin preparation and sterile surgical drapes were placed. The skin and subcutaneous tissues at the site of the breast lesion was then infiltrated with 1% xylocaine with epinephrine. A transverse curvilinear skin incision was then made at the wire entrance site with a 15 blade scalpel at the upper outer quadrant of the patient's right breast. It was carried down through to the subcutaneous tissues. Hemostasis was controlled with electrocautery. The wire was then palpated out within the breast tissue. It was brought into the wound from outside. The breast tissue surrounding the wire was then carefully palpated out and from the surrounding tissues using electrocautery. The breast tissue, once from the breast, was then forwarded to the radiology department, where a specimen mammogram revealed that the marker clip was within the specimen. The breast tissue was then forwarded to pathology. The wound cavity was carefully examined. No further suspicious tissue was palpated or visualized. Hemostasis was carefully controlled with electrocautery. The subdermal tissues were then approximated with vicryl suture. The incision was then reapproximated close using running monocryl suture. Cavilon and steristrips were then placed to reinforce the skin closure. Sponge, needle, and instrument count were verified and correct at the time of skin closure. A sterile dressing was then applied. The patient was then brought to the Recovery Room in stable condition. - Complications none noted - Admit VTE Documentation VTE Present on Admission: Yes VTE Mechan Device Prophylaxis: SCD's
--- NOTE | 2020-02-26 15:28 | PCM.DC.BS ---
Discharge Diet: No Restrictions Discharge Activity: Return to Normal Activity, May not drive while taking narcotic pain medications. Call your doctor if your incision/area has: Continuous Slow Oozing, Foul Smelling Discharge Call your doctor if you observe: Fever of 101 or Higher Additional Instructions: Recommended pain control regimen - May take 600 mg ibuprofen (Motrin) and then in 3-4 hours, may take 650 mg acetaminophen (Tylenol), then in 3-4 hours may take 600 mg ibuprofen, then in 3-4 hours may take 650 mg acetaminophen and so on for 2-3 days May take narcotic pain medication for pain that is not controlled by above and at night for comfort through the night Leave dressings in place May get dressings wet in shower - do not scrub in the area and pat dry Do not soak - no tub baths/swimming If dressing appears to be soiled/open at one end/no longer sealed - may remove dressing but leave site uncovered (do not replace with any type of dressing) - leave steristrips in place - may get wet but do not scrub in the area and pat dry For breast surgery - Wear supportive bra during the day Swelling and bruising will occur in the area, ice packs to the area may provide comfort, apply as tolerated Avoid excessive bouncing/jumping for at least two weeks Allergies/Adverse Reactions: Allergies sulfamethoxazole [From Bactrim] Adverse Reaction (Verified 02/26/20 12:30) Nausea/Vom/Diarrhea trimethoprim [From Bactrim] Adverse Reaction (Verified 02/26/20 12:30) Nausea/Vom/Diarrhea Medications to take at Discharge Acetaminophen [Tylenol Tablet] 650 mg PO Q6H PRN PRN tab 01/29/19 Fluoxetine HCl [Prozac] 40 mg PO DAILY 02/19/20 Hydroxyzine Pamoate [Vistaril] 100 mg PO BID PRN PRN 02/19/20 Quetiapine Fumarate [Seroquel] 50 mg PO QHS 02/19/20 Hydrocodone/Acetaminophen [Anthony 5-325 Tablet] 1 ea PO Q12H PRN PRN 2 Days #4 tab 02/26/20 The following prescriptions were given: Hydrocodone/Acetaminophen [Anthony 5-325 Tablet] 1 ea PO Q12H PRN PRN 2 Days #4 tab PRN Reason: Pain Score 6-10/10 Transmission Status: Sent to [facility] [place] - [address] Primary Care Physician: Care Physician,No Primary [Primary Care Provider] - Please Follow Up With: Noelle Duncan MD - call When: to be seen in 7-10 days, please call for date and time, thank you
[2020-02-26] MEDS: HYDROcodone Bitartrate/Apap 5/325 Tablet PO (16:16)
== END 2020-02-26 16:26 | disposition home or self-care (01) ==
LOC: SDC 12:23 → AC 12:24
PROVIDERS: Anesthesiology; Referring Provider Surgery; Visit Provider Surgery
PROC: (CPT 19101; principal; 2020-02-26 14:20)
DX: N60.31 Fibrosclerosis of right breast (principal); F32.9 Major depressive disorder, single episode, unspecified; F10.20 Alcohol dependence, uncomplicated; F17.210 Nicotine dependence, cigarettes, uncomplicated; F41.0 Panic disorder [episodic paroxysmal anxiety]; Z79.899 Other long term (current) drug therapy; Z90.49 Acquired absence of other specified parts of digestive tract
CPT/HCPCS: 19101; 19283; 19281; 76098; 81025; 87635; 88305; 88307; 88341; 88342; 94799; J7120; J2405; U0003

== ENCOUNTER 2020-04-17 22:24 | Inpatient (IN) | payer MEDICAID, SELFPAY ==
[2020-02-26 12:38] VITALS: BMI 19.3
[2020-04-17 22:25] VITALS: BP 110/57; PULSE 110; RESP 16; TEMP 36.6; O2SAT 98; BMI 20.2
--- NOTE | 2020-04-17 23:05 | ED.VIS.GEN ---
History of Present Illness Chief Complaint: Substance Abuse Informant: Patient Narrative: Patient is a 39-year-old female who presents to the emerge department to request to detox from alcohol. She states she drinks gallons of liquor per day. She states that she has been doing this her entire life. She has been through detox before in the past. She has had seizures when going through withdrawal before. Her last drink was just prior to coming into the emergency department. She states that she also loves to use drugs. She states that she has not used this in quite some time and she is tried to get her life together. She states that she will use whatever she can get her hands on. Patient is intoxicated at time of exam. She is denying having any symptoms otherwise at this time. Denies any headache, chest pain or shortness of breath. No abdominal pain. No nausea/vomiting or change in bowel habits. She has been having some dysuria. No fevers or chills. No cough, cold, congestion. Past Medical History - Allergies and Home Meds Allergies/Adverse Reactions: Allergies sulfamethoxazole [From Bactrim] Adverse Reaction (Verified 04/17/20 22:27) Nausea/Vom/Diarrhea trimethoprim [From Bactrim] Adverse Reaction (Verified 04/17/20 22:27) Nausea/Vom/Diarrhea Prior records reviewed: Yes Past Medical History: - - History of breast cancer status post resection, anxiety/depression, substance abuse, alcohol abuse Surgical History: tonsillectomy, - - section x2 Smoking Status: Current every day smoker - Family History Maternal Family History: Reports: Diabetes Paternal Family History: Reports: Hypertension Review of Systems All systems negative except as indicated General: Denies: Chills, Fever, Sweats Eyes: Denies: Visual changes - bilaterally, Diplopia ENT: Denies: Rhinorrhea, Sore throat Cardiovascular: Denies: Chest pain, Palpitations Respiratory: Denies: Dyspnea, Cough, Dyspnea on exertion Gastrointestinal: Denies: Abdominal pain, Nausea, Vomiting, Diarrhea, Melena, Hematochezia Genitourinary: Reports: Dysuria. Denies: Hematuria, Frequency Musculoskeletal: Denies: Back pain, Extremity Pain Skin: Denies: Rash, Wounds Neurological: Denies: Headache, Weakness, Numbness Psych: Reports: Depression, Anxiety Physical Exam Vital Signs/Narrative: Vital Signs Temp Pulse Resp BP Pulse Ox 04/17/20 22:25 97.8 F 110 H 16 110/57 L 98 Inital Vital Signs reviewed: Yes General: Well nourished, Well developed, No Acute Distress, - - She does get agitated at questioning. Head: Normocephalic, Atraumatic Eyes: Perrl, EOMI ENT: Moist mucous membranes, No rhinorrhea Neck: Supple, Nontender Cardiovascular: Regular rhythm, No murmurs, Tachycardia Respiratory: No distress, CTA bilaterally, Chest nontender Abdomen: Soft, Nontender, Nondistended, Normal bowel sounds Back: Nontender, Normal Inspection Extremities: Nontender, No edema Skin: Normal color, No rash Neurological: Alert, Oriented x3, Cranial nerves II-XII grossly intact, Normal Strength, Normal Sensation Psychological: Agitated Diagnostic/Tx/Re-eval - Medical Decision Making Patient presents the emerge department intoxicated and requesting to detox. Upon arrival to the EDshe is in no apparent distress. Mildly tachycardic but otherwise benign physical exam. Basic lab work being obtained. Lab work had the patient's liver enzymes mildly elevated otherwise no significant abnormality. She is intoxicated with alcohol level near 300. Did discuss the case with the hospitalist who is willing to admit the patient for detox. She is to be closely monitored for evidence of withdrawal as she has had seizures before in the past. Despite intoxication she comprehends what is going on and she is agreeable with this. She has been stable throughout ED stay. ED Disposition - Plan for ED Patient: Disposition: Acute Care Hospital [facility] Diagnosis: Alcohol intoxication, Alcohol abuse, Transaminitis
[2020-04-17 23:15] VITALS: BP 110/57; PULSE 110; RESP 16; TEMP 36.6; O2SAT 98
[2020-04-17 23:23] LABS: Amphetamine Urine VISTA NEGATIVE (<1000 ng/mL); Barbiturate Urine VISTA NEGATIVE (< 200 ng/mL); Benzodiazepine Urine VISTA NEGATIVE (< 200 ng/mL); Cocaine Urine VISTA NEGATIVE (< 300 ng/mL); Ecstacy Urine VISTA NEGATIVE (< 500 ng/mL); Methadone Urine VISTA NEGATIVE (< 300 ng/mL); PCP Urine VISTA NEGATIVE (< 25 ng/mL); THC Urine VISTA NEGATIVE (< 50 ng/mL); Vista UDS pH Range 5
--- NOTE | 2020-04-17 23:34 | HP.PCM_ITS ---
Problem List (1) Desire for detoxification Status: Acute (2) Anxiety and depression Status: Chronic (3) Panic attacks Status: Chronic (4) Severe malnutrition Status: Chronic (5) Tobacco use Status: Chronic (6) Elevated LFTs Status: Chronic (7) Alcoholism /alcohol abuse Status: Chronic History of Present Illness Date of Admission: 04/17/20 Chief Complaint: Alcohol withdrawal treatment The patient is a 39 y/o F w/ PMHx: Hx Polysubstance abuse (notes recent negative HIV/Hepatitis testing), Anxiety and Depression with panic attacks, Chronic LFT elevations, Tobacco use, Cannabis use, Malnutrition, EtOH Abuse most recently admitted for acute EtOH Withdrawal treatment 01/2019 who now re-presents to the [facility] ED on 04/17/20 with history of sobriety for the last 7 months however she recently relapsed and has been drinking approximately 1 gallon of vodka daily with significant interest in obtaining sober status, brought in by her counselor with most recent drink prior to presentation with severe irritability, fatigue, increased anxiety and depression as well as panic attacks and quick onset of tremors, nausea, emesis as well as tactile disturbances if she does not regularly drink. Patient in the emergency room notes that if she is not admitted for withdrawal she likely will end up killing herself secondary to ongoing alcohol abuse. She denies any suicidal ideation. Work-up in the ED included T 97.8, heart rate 110, BP 110/57, respiratory rate 16, 98% on room air, CBC with WBC 9.7, hemoglobin 13.2, platelet 280 without market shift but increased immature granulocytes, CMP with chloride 109, AST/ALT 112/64, negative serum testing, urinalysis with specific gravity elevation 1.025, protein 15, ketone 15, negative nitrite, negative leukocyte Estrace, no urine WBCs, 1+ urine bacteria, negative urine drug screen, ethyl alcohol level 297, urine culture pending per ED. in the ED hospitalist evaluation performed and nicotine patch requested to be placed given patient significant nicotine wit hdrawal and anxiety. Past Medical History Past Medical History (Chronic Problems): Chronic Problems (Last Updated 01/27/19 @ 01:[address] Chaparro Sultana MD) Alcoholism /alcohol abuse (Chronic) Anxiety and depression (Chronic) Panic attacks (Chronic) Severe malnutrition (Chronic) Tobacco use (Chronic) Elevated LFTs (Chronic) Medical History: Medical History (Last Updated 01/27/19 @ 01:[address] Chaparro Sultana MD) Alcohol dependence F10.20 Allergies sulfamethoxazole [From Bactrim] Adverse Reaction (Verified 04/17/20 22:27) Nausea/Vom/Diarrhea trimethoprim [From Bactrim] Adverse Reaction (Verified 04/17/20 22:27) Nausea/Vom/Diarrhea Home Medications: Ambulatory Orders Medication Instructions Recorded RX: Acetaminophen [Tylenol Tablet] 650 mg PO Q6H PRN PRN tab 01/29/19 Fluoxetine HCl [Prozac] 40 mg PO DAILY 02/19/20 Hydroxyzine Pamoate [Vistaril] 100 mg PO BID PRN PRN 02/19/20 Quetiapine Fumarate [Seroquel] 50 mg PO QHS 02/19/20 Surgical History: tonsillectomy, - - section x 2, bilateral tubal ligation, cholecystectomy, tonsillectomy, breast biopsy noted to be benign on pathology. 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 Tobacco Use: Cigarettes Alcohol: Heavy - Currently approximately 1 gallon of vodka daily. Drugs: - - Patient with history of prior polysubstance abuse including cocaine, methamphetamines, noted to have snorted with denied IV drug abuse, clean for several months. - *Family History Maternal History Items: Diabetes Paternal History Items: Hypertension Review of Systems Constitutional: Reports: Anorexia, Malaise, Weakness, Fatigue. Denies: Chills, Fever, Weight Change HEENT: Denies: Head Aches, Sinus Congestion, Sinus Drainage Cardiovascular: Denies: Chest Pain, Chest Pressure, Chest Tightness, Light Headedness, Orthopnea, Palpitations, Syncope Respiratory: Denies: Cough, Shortness of Breath, Shortness of breath at rest, Sputum production Gastrointestinal: Reports: Nausea. Denies: Abdominal Pain, Vomiting Genitourinary: Denies: Dysuria Musculoskeletal: Denies: Joint Pain, Joint Tenderness Skin: Denies: Rash, Wounds Neurological: Reports: - - When she does not have regular alcohol intake she has onset of tremors, agitation, tactile disturbances.. Denies: Focal weakness, Numbness, Tingling Psychiatric: Reports: Anxiety, Depression. Denies: Homicidal Ideations, Suicidal Ideations Hematologic/ Lymphatic: Reports: Easy Bruising. Denies: Easy Bleeding VTE Information - Inpt Only VTE Present on Admission: No VTE Mechan Device Prophylaxis: None VTE Pharm Prophylaxis ordered?: No Reason prophylaxis not ordered:: Treatment Not Indicated Patient Problems: Active and Suspected Problems (Last Updated 01/27/19 @ 01:[address] Chaparro Sultana MD) Desire for detoxification (Acute) Subjective: Seated up in ED bed, anxious, irritable. Objective: Physical Examination: General: awake, alert, oriented x 3 and cooperative, seated upright in the ED bed at the bedside, irritable, anxious. Skin: normal color, turgor, no icterus, cyanosis. HEENT: AT/NC, EOMI, PERRLA, dry MM, no carotid bruits or JVD noted. Lungs: CTA bilaterally, moderate effort, moderate decrease BL bases, no rales, ronchi or wheezing. Heart: Mildly tachycardic with regular rhythm; no gallop, rub audible. Abdomen: soft, thin habitus, cachectic, NTTP, ND, normal BS, mild + HM. Extremities: no cyanosis, clubbing, or edema. Neurological: patient awake, alert, oriented x 3; cognitive function appears intact but significantly agitated; pupils equally reactive to light and accomodation; cranial nerves II-XII grossly normal, moving all 4 extremities, no focal deficits, strength appears preserved, frequently moving. Psychiatric: affect appears extremely agitated and irritable, no acute evidence of depressive or anxiety feelings but does have underlying significant history as well as panic attacks, denies any suicidal ideation specifically asked because patient noted if she did not receive treatment she likely would end up killing herself secondary to complications with alcohol abuse. - Physical Exam Vitals/I&O's: Vital Signs Temp Pulse Resp BP Pulse Ox 97.8 F 110 H 16 110/57 L 98 04/17/20 23:15 04/17/20 23:15 04/17/20 23:15 04/17/20 23:15 04/17/20 23:15 Oxygen Delivery Method Room Air Weight: 129 lb Body Mass Index (BMI) 20.2 Laboratory Results 04/17/20 23:00: Urine Opiates Screen NEGATIVE, Urine Methadone Screen NEGATIVE, Ur Barbiturates Screen NEGATIVE, Ur Phencyclidine Scrn NEGATIVE, Ur Amphetamines Screen NEGATIVE, U Methamphetamin-MDMA NEGATIVE, U Benzodiazepines Scrn NEGATIVE, Urine Cocaine Screen NEGATIVE, U Cannabinoids Screen NEGATIVE, Ur Drug Screen Comment 04/17/20 23:20: WBC Pending, RBC Pending, Hgb Pending, Hct Pending, MCV Pending, MCH Pending, MCHC Pending, RDW Std Deviation Pending, RDW Coeff of Opal Pending, Plt Count Pending, Neut % (Auto) Pending, Absolute Neuts (auto) Pending 04/17/20 23:20: Sodium Pending, Potassium Pending, Chloride Pending, Carbon Dioxide Pending, Anion Gap Pending, BUN Pending, Creatinine Pending, Est GFR (MDRD) Af Amer Pending, Est GFR (MDRD) Non-Af Pending, BUN/Creatinine Ratio Pending, Glucose Pending, Calcium Pending, Total Bilirubin Pending, AST Pending, ALT Pending, Alkaline Phosphatase Pending, Total Protein Pending, Albumin Pending 04/17/20 23:20: Ethyl Alcohol Pending 04/17/20 23:20: Serum , Qual Pending Assessment/Plan All Active Problems (Last Updated 01/27/19 @ 01:[address] Chaparro Sultana MD) Sinus tachycardia seen on environmental monitoring specialist (Acute) Alcohol dependence with withdrawal (Acute) Desire for detoxification (Acute) The patient is a 39 y/o F w/ PMHx: Hx Polysubstance abuse, Anxiety and Depression with panic attacks, Chronic LFT elevations, Tobacco use, Cannabis use, Malnutrition, EtOH Abuse most recently admitted for acute EtOH Withdrawal treatment 01/2019 who now re-presents to the [facility] ED on 04/17/20 with history of sobriety for the last 7 months however she recently relapsed and has been drinking approximately 1 gallon of vodka daily with significant interest in obtaining sober status. 1. Acute EtOH Withdrawal: Will admit to [facility], routine labs obtained in the ED upon presentation. Given interest in sobriety, will initiate and continue on protocol with taper course of Phenobarbital, scheduled gabapentin for seizure prophylaxis, as needed Catapres, Bentyl, Vistaril, IV fluids, IV antiemetics, Tylenol as needed for pain. Will consult Case management for assistance for transition to next level of rehabilitation care. , phos pending. Maintain on CIWA protocol concurrently. 2. Anxiety and depression, Panic attacks: Significantly contributing to alcohol abuse history, re-presenting now with last admission for alcohol detox January 2019, continue Prozac, Seroquel, Vistaril, encourage continued counseling with 180. 3. Severe protein calorie malnutrition: Evidenced per habitus, despite BMI 20.2 obvious muscle and fat loss, supplementation with Ensure, multivitamin, folic acid and thiamine as noted. May consider nutrition consultation. 4. Chronically Elevated LFTs: Secondary to chronic EtOH abuse, admission AST/ALT 112/64, will encourage follow-up outpatient with PCP for further assessment. 5. Tobacco Abuse: Encouraged cessation, inpatient consultation per RT, NR if desired. 6. Polysubstance Abuse, Denies IVDA: Patient notes she has been clean for several months, denies any IV drug abuse, notes recent HIV and hepatitis testing that was unremarkable. Encouraged continued clean status and close follow-up with 180. 7. DVT Prophylaxis: Low risk, ambulation. Inpatient E&M: [id number] Init Hosp L3
[2020-04-17 23:35] LABS: Absolute Lymphocyte Count 1.51 X10^3/uL (0.83-4.51); Absolute Neutrophil Count 7.4 X10^3/uL (2.0-7.7); Eosinophil# 0.02 X10^3/uL; Eosinophils% 0.2 % (0-5); Hematocrit 40.8 % (37-47); Hemoglobin 13.2 g/dL (12.0-15.0); Lymphocyte # 1.51 X10^3/ul (4.0); Lymphocyte % 15.6 % (19-41); Mean Corp Hgb Conc 32.4 g/dL (32-36); Mean Corpuscular Hgb 29.7 pg (27.0-32.0); Mean Corpuscular Volume 91.7 fL (81-99); Mean Platelet Vol. 9.7 fl (6.2-12.0); Monocyte# 0.51 X10^3/uL; Monocyte% 5.3 % (0-10); NRBC Flagged by Analyzer 0 % (0-5); Neutrophil # 7.38 X10^3/uL (2.7-7.7); Neutrophil % 76.6 % (47-70); Platelet Count 280 K/mm3 (150-450); RBC Distribution Width SD 47.4 fl (35.1-43.9); Red Blood Count 4.45 M/mm3 (4.2-5.4); White Blood Count 9.7 K/mm3 (4.4-11.0)
[2020-04-17 23:44] LABS: Color, Urine Yellow (Yellow); Glucose, Dipstick Normal (Normal); Ketone-Dipstick 15 mg/dl (Negative); Leukocyte Esterase-Dipstick Negative /ul (Negative); Mucous, Urine 0 SEEN /hpf (<or=2+); Nitrite-Dipstick Negative (Negative); Occult Blood-Urine Negative /ul (Negative); Protein-Dipstick 15 mg/dl (Negative); Red Blood Cells-Urine 0 SEEN /hpf (0-5); Specific Gravity, Urine 1.025 (1.002-1.030); Urine Bilirubin Dipstick Negative (Negative); Urine Clarity Clear (Clear); Urine Urobilinogen Normal (Normal); White Blood Cells 0 SEEN /hpf (0-5)
[2020-04-17 23:47] LABS: Internal QC Validated? YES +Cl - CLEAR BKGD; Pregnancy, Serum, hCG Quali. NEGATIVE Negative
[2020-04-17 23:55] LABS: Bacteria 1+ /hpf (None Seen); Hyaline Cast 0-5 SEEN /lpf (0-5); Squamous Epithelial Cells - UA 0-5 SEEN /hpf (5-10)
[2020-04-17 23:55] LABS: ALB/GLOB Ratio 1.2 RATIO (0.9-2.4); AST(SGOT) 112 U/L (15-37); Alanine Aminotransfer ALT/SGPT 64 U/L (13-56); Albumin, Serum 4.2 g/dL (3.2-5.0); Alkaline Phosphatase 97 U/L (45-117); Anion Gap 9 (5-15); BUN 14 mg/dL (7-18); BUN/Creat Ratio 15.1 RATIO (10-20); Calcium,Total 8.5 mg/dL (8.5-10.1); Chloride 109 mmol/L (98-107); Creatinine, Serum 0.93 mg/dL (0.55-1.02); EST Glomerular Filtration Rate 71 mL/min (>60); Est Glom Filt Rate - Afr Amer 86 mL/min (>60); Estimated Creatinine Clearance 74.28 ml/min; Globulin 3.6 g/dL (2.2-4.2); Glucose 100 mg/dL (74-106); Potassium 3.6 mmol/L (3.5-5.1); Protein, Total 7.8 g/dL (6.4-8.2); Sodium Level 143 mmol/L (136-145)
[2020-04-18 00:09] VITALS: BP 103/79; PULSE 89; RESP 17; TEMP 36.6; O2SAT 98
[2020-04-18 00:20] VITALS: BP 114/72; PULSE 89; RESP 16; TEMP 36.8; O2SAT 100
[2020-04-18 00:30] VITALS: BMI 19.2
[2020-04-18 00:34] VITALS: BMI 19.2
[2020-04-18 00:43] LABS: Magnesium 2.2 mg/dL (1.6-2.6); Phosphorus 3.4 mg/dL (2.5-4.9)
[2020-04-18] MEDS: Lactated Ringers 1,000 ML 125 ML IV (00:59)
[2020-04-18] MEDS: traZODone 100 MG Tablet PO (01:03)
[2020-04-18] MEDS: Phenobarbital 32.4 MG Tablet 64.8 MG PO ×6 (01:03→21:17)
[2020-04-18] MEDS: Ondansetron 8 MG Tablet PO (01:12)
[2020-04-18] MEDS: Gabapentin 300 MG Capsule PO (01:12)
[2020-04-18 04:36] VITALS: BP 91/53; PULSE 95; RESP 16; TEMP 36.8; O2SAT 95
[2020-04-18] MEDS: Thiamine Hydrochloride 100 MG Tablet PO (09:44)
[2020-04-18] MEDS: Multivitamins,Therapeutic Tablet 1 TABLET PO (09:45)
[2020-04-18] MEDS: Famotidine 20 MG Tablet PO ×2 (09:45→21:17)
[2020-04-18] MEDS: Folic Acid 1 MG Tablet PO (09:45)
[2020-04-18] MEDS: FLUoxetine 20 MG Capsule 40 MG PO (09:45)
[2020-04-18 10:00] VITALS: BP 116/61; PULSE 80; RESP 16; TEMP 36.7; O2SAT 96
--- NOTE | 2020-04-18 11:09 | PCM.PN.HOSP ---
Patient Problems: Active and Suspected Problems (Last Updated 01/27/19 @ 01:[address] Chaparro Sultana MD) Desire for detoxification (Acute) Alcohol intoxication (Acute) Alcohol abuse (Acute) Transaminitis (Acute) Reason for Visit: Follow-up for acute alcohol withdrawal. Objective: Patient is very drowsy and lethargic. She answers most questions by closing her eyes with some delay. She has tremors, restlessness and anxiety. Denies hallucinations. She drinks vodka 1 gallon daily. At relapse after 6 months of sobriety. Denies substance use. Physical exam General: Sleepy and drowsy, oriented x3, Cooperative HEENT: Atraumatic, PERRLA, EOMI, Normocephalic Oral: No Gingival or Mucosal Lesions/ Ulcerations Neck: Supple, No JVD, Negative Carotid Bruits Lungs: Air entry diminished in bilateral lung bases. No crepitation/rhonchi Cardiovascular: Regular rate, Regular Rhythm, Normal S1, Normal S2, No murmurs Abdomen: Bowel Sounds Present, Soft, Non Tender, Non-Distended : No renal angle tenderness. No suprapubic tenderness. Extremities: No edema, Capillary Refill Less than 3 Seconds Skin: No rashes, No breakdown Musculoskeletal: No Tenderness to Palpation of Joints or Extremities. Tremors on upper extremities on outstretched hand. Neurological: Cranial nerves II-XII grossly intact, Deep Tendon Reflexes 2+/4 and Symmetrical, Neuro grossly intact Psych/Mental Status: Drowsy, restless and anxious. Vitals/I&O's: Vital Signs Temp Pulse Resp BP Pulse Ox 98.3 F 95 16 91/53 L 95 04/18/20 04:36 04/18/20 04:36 04/18/20 04:36 04/18/20 04:36 04/18/20 04:36 Oxygen Delivery Method Room Air Weight: 122 lb 9.232 oz Body Mass Index (BMI) 19.2 Intake and Output for Last 24 Hours 04/16/20 04/17/20 04/18/20 23:59 23:59 23:59 Intake Total 1250 / 1250 Balance 1250 / 1250 Laboratory Results 04/17/20 23:00: Urine Opiates Screen NEGATIVE, Urine Methadone Screen NEGATIVE, Ur Barbiturates Screen NEGATIVE, Ur Phencyclidine Scrn NEGATIVE, Ur Amphetamines Screen NEGATIVE, U Methamphetamin-MDMA NEGATIVE, U Benzodiazepines Scrn NEGATIVE, Urine Cocaine Screen NEGATIVE, U Cannabinoids Screen NEGATIVE, Ur Drug Screen Comment 04/17/20 23:00: Urine Color Yellow, Urine Clarity Clear, Urine pH 5.0, Ur Specific Ada 1.025, Urine Protein 15 H, Urine Glucose (UA) Normal, Urine Ketones 15 H, Urine Occult Blood Negative, Urine Nitrite Negative, Urine Bilirubin Negative, Urine Urobilinogen Normal, Ur Leukocyte Esterase Negative, Urine RBC 0 SEEN, Urine WBC 0 SEEN, Ur Squamous Epith Cells 0-5 SEEN, Urine Bacteria 1+, Hyaline Casts 0-5 SEEN, Urine Mucus 0 SEEN 04/17/20 23:20: WBC 9.7, RBC 4.45, Hgb 13.2, Hct 40.8, MCV 91.7, MCH 29.7, MCHC 32.4, RDW Std Deviation 47.4 H, RDW Coeff of Opal 14.0, Plt Count 280, MPV 9.7, Immature Gran % (Auto) 1.300 H, Neut % (Auto) 76.6 H, Lymph % (Auto) 15.6 L, [place] % (Auto) 5.3, Eos % (Auto) 0.2, Baso % (Auto) 1.0, Absolute Neuts (auto) 7.4, Absolute Lymphs (auto) 1.51, Nucleated RBC % 0 04/17/20 23:20: Sodium 143, Potassium 3.6, Chloride 109 H, Carbon Dioxide 25.0, Anion Gap 9, BUN 14, Creatinine 0.93, Estim Creat Clear Calc 74.28, Est GFR (MDRD) Af Amer 86, Est GFR (MDRD) Non-Af 71, BUN/Creatinine Ratio 15.1, Glucose 100, Calcium 8.5, Total Bilirubin 0.30, AST 112 H, ALT 64 H, Alkaline Phosphatase 97, Total Protein 7.8, Albumin 4.2, Globulin 3.6, Albumin/Globulin Ratio 1.2 04/17/20 23:20: Ethyl Alcohol 297.0 04/17/20 23:20: Serum , Qual NEGATIVE 04/17/20 23:20: Phosphorus 3.4, Magnesium 2.2 Current Medications Acetaminophen (Tylenol) 650 mg PO Q6H PRN PRN PRN Reason: Mild Pain (1-3)/Temp > 100.7 F Al Hydroxide/Mg Hydroxide (Mylanta Ii) 30 ml PO Q6H PRN PRN PRN Reason: dyspesia Bisacodyl (Dulcolax) 10 mg RECTAL DAILY PRN PRN PRN Reason: Constipation Dicyclomine HCl (Bentyl) 20 mg PO Q6H PRN PRN PRN Reason: abdominal discomfort Famotidine (Pepcid) 20 mg PO BID [facility] Last Admin: 04/18/20 09:45 Dose: 20 mg Documented by: Fluoxetine HCl (Prozac) 40 mg PO DAILY [facility] Last Admin: 04/18/20 09:45 Dose: 40 mg Documented by: Folic Acid (Folic Acid) 1 mg PO DAILY@0800 [facility] Last Admin: 04/18/20 09:45 Dose: 1 mg Documented by: Gabapentin (Neurontin) 300 mg PO Q8H PRN PRN PRN Reason: moderate to severe anxiety Last Admin: 04/18/20 01:12 Dose: 300 mg Documented by: Hydroxyzine Pamoate (Vistaril Pamoate Capsule) 50 mg PO Q4H PRN PRN PRN Reason: mild anxiety Ibuprofen (Motrin) 600 mg PO Q8H PRN PRN PRN Reason: Pain Score 1-10 Loperamide HCl (Imodium) 2 mg PO Q4H PRN PRN PRN Reason: LOOSE STOOLS [facility]it[facility] ([facility]ivitamin) [facility] Last Admin: 04/18/20 09:45 Dose: 1 tablet Documented by: Nicotine (Nicoderm Cq (Pbkc)) 21 mg TRANSDERM. DAILY [facility] Last Admin: 04/18/20 09:46 Dose: 21 mg Documented by: Ondansetron HCl (Zofran) 8 mg PO Q8H PRN PRN PRN Reason: NAUSEA Last Admin: 04/18/20 01:12 Dose: 8 mg Documented by: Phenobarbital (Phenobarbital) 97.2 mg PO Q4H [facility]; Taper Stop: 04/22/20 08:59 Last Admin: 04/18/20 09:44 Dose: 97.2 mg Documented by: Potassium Chloride (K-Dur) 40 meq [facility] [place] Stop: 04/21/20 08:01 Quetiapine Fumarate (Seroquel) 50 mg PO QHS [facility] Senna (Senokot) 2 tablet PO QHS PRN PRN PRN Reason: Constipation Sodium Chloride () 10 - 40 ml IV UD PRN PRN Reason: SALINE FLUSH Thiamine HCl (Vitamin B1) 100 mg PO DAILYCM [facility] Last Admin: 04/18/20 09:44 Dose: 100 mg Documented by: Trazodone HCl (Desyrel) 100 mg PO QHS PRN PRN PRN Reason: INSOMNIA Last Admin: 04/18/20 01:03 Dose: 100 mg Documented by: Medical Necessity - Tobacco Use Smoking Status: Current every day smoker Tobacco Use: Cigarettes Assessment/Plan All Active Problems (Last Updated 01/27/19 @ 01:[address] Chaparro Sultana MD) Sinus tachycardia seen on athletic monitor (Acute) Alcohol dependence with withdrawal (Acute) Desire for detoxification (Acute) Alcohol intoxication (Acute) Alcohol abuse (Acute) Transaminitis (Acute) The patient is a 39 y/o F with history of polysubstance abuse, Anxiety and Depression with panic attacks, chronic alcohol use and withdrawal syndrome with last admission in January 2019 was admitted for acute alcohol withdrawal syndrome. 1. Acute alcohol withdrawal syndrome : Patient is being admitted on MedSurg floor. Patient on phenobarbitone regimen along with other supportive medications gabapentin, clonidine, Vistaril, Bentyl and antiemetics. 2. acute on chronic alcoholic hepatitis: Patient ALT and AST are elevated 64/112. It has been elevated before, last 44/63 in January 2019. Patient denies history of hematemesis or melena but never had EGD. She had colonoscopy in the past. Does not have right upper quadrant tenderness or ascites. 3. Severe protein calorie malnutrition: Patient has moderate muscle atrophy of extremities and subcutaneous fat loss. BMI 20.2. Continue supplementation with Ensure, multivitamin, folic acid and thiamine as noted. Nutritional consult 4. Anxiety and depression, with panic attacks: continue Prozac, Seroquel, Vistaril, counseling with 180. 5. Tobacco Abuse: On nicotine patch. Patient is smokes a pack per day since teenage 6. Patient notes she has been clean for several months, denies any IV drug abuse, crack cocaine, methamphetamine or other drugs/substances. Notes recent HIV and hepatitis testing that was unremarkable. 7. DVT Prophylaxis: Low risk, ambulation. Inpatient E&M: [id number] Subs Hosp L2
--- NOTE | 2020-04-18 11:58 | ADDICTION ---
Patient refused to meet with this expert medical writer. SHe reported that she is not feeling up to assessment and d/c planning at this time.
[2020-04-18 13:20] VITALS: BP 105/60; PULSE 85; RESP 18; TEMP 37.1; O2SAT 95
[2020-04-18] MEDS: Ibuprofen 600 MG Tablet PO (17:56)
[2020-04-18 21:13] VITALS: BP 93/45; PULSE 78; RESP 16; TEMP 36.9; O2SAT 97
[2020-04-18] MEDS: QUEtiapine 25 MG Tablet 50 MG PO (21:17)
[2020-04-19 01:21] VITALS: BP 94/54; PULSE 75; RESP 16; TEMP 36.9; O2SAT 96
[2020-04-19] MEDS: Phenobarbital 32.4 MG Tablet 64.8 MG PO ×6 (01:24→22:13)
[2020-04-19 05:34] VITALS: BP 93/54; PULSE 70; RESP 16; TEMP 36.5; O2SAT 98
[2020-04-19 09:14] VITALS: BP 103/58; PULSE 79; RESP 14; TEMP 36.7; O2SAT 96
[2020-04-19] MEDS: Thiamine Hydrochloride 100 MG Tablet PO (09:18)
[2020-04-19] MEDS: Folic Acid 1 MG Tablet PO (09:18)
[2020-04-19] MEDS: Famotidine 20 MG Tablet PO ×2 (09:18→22:13)
[2020-04-19] MEDS: FLUoxetine 20 MG Capsule 40 MG PO (09:18)
[2020-04-19] MEDS: Multivitamins,Therapeutic Tablet 1 TABLET PO (09:18)
[2020-04-19 09:30] LABS: Anion Gap 6 (5-15); BUN 13 mg/dL (7-18); BUN/Creat Ratio 23.1 RATIO (10-20); Calcium,Total 8.1 mg/dL (8.5-10.1); Chloride 108 mmol/L (98-107); Creatinine, Serum 0.56 mg/dL (0.55-1.02); EST Glomerular Filtration Rate 126 mL/min (>60); Est Glom Filt Rate - Afr Amer 153 mL/min (>60); Estimated Creatinine Clearance 117.21 ml/min; Glucose 68 mg/dL (74-106); Magnesium 1.8 mg/dL (1.6-2.6); Potassium 3.7 mmol/L (3.5-5.1); Sodium Level 139 mmol/L (136-145)
--- NOTE | 2020-04-19 10:48 | PN_ITS ---
Patient Problems: Active and Suspected Problems (Last Updated 01/27/19 @ 01:[address] Chaparro Sultana MD) Desire for detoxification (Acute) Alcohol intoxication (Acute) Alcohol abuse (Acute) Transaminitis (Acute) Reason for Visit: Alcohol withdrawal syndrome Objective: Patient is more awake and alert than yesterday. Her symptoms of anxiety and restlessness are better controlled. She is having loose bowel movement. Urine culture shows mixed gram-positive organism suggestive of contamination. Physical exam General: Alert, Oriented x3, Cooperative, thin looking, HEENT: Atraumatic, PERRLA, EOMI, Normocephalic Oral: No Gingival or Mucosal Lesions/ Ulcerations Neck: Supple, No JVD, Negative Carotid Bruits Lungs: Air entry diminished in bilateral lung bases. No crepitation/rhonchi Cardiovascular: Regular rate, Regular Rhythm, Normal S1, Normal S2, No murmurs Abdomen: Bowel Sounds Present, Soft, Non Tender, Non-Distended : No renal angle tenderness. No suprapubic tenderness. Extremities: No edema, Capillary Refill Less than 3 Seconds Skin: No rashes, No breakdown Musculoskeletal: No Tenderness to Palpation of Joints or Extremities, loss of subcutaneous fat and mild muscle atrophy of extremities Neurological: Cranial nerves II-XII grossly intact, Deep Tendon Reflexes 2+/4 and Symmetrical, Neuro grossly intact Psych/Mental Status: Normal Affect, Appropriate. Vitals/I&O's: Vital Signs Temp Pulse Resp BP Pulse Ox 98.1 F 79 14 103/58 L 96 04/19/20 09:14 04/19/20 09:14 04/19/20 09:14 04/19/20 09:14 04/19/20 09:14 Oxygen Delivery Method Room Air Weight: 122 lb 9.232 oz Body Mass Index (BMI) 19.2 Intake and Output for Last 24 Hours 04/17/20 04/18/20 04/19/20 23:59 23:59 23:59 Intake Total 1250 / 1250 Balance 1250 / 1250 Microbiology Past 72 Hours 04/17/20 23:00 Urine, Clean Catch Urine Culture - Final Mixed Gram Positive Organisms Laboratory Results 04/19/20 08:35: Sodium 139, Potassium 3.7, Chloride 108 H, Carbon Dioxide 25.0, Anion Gap 6, BUN 13, Creatinine 0.56, Estim Creat Clear Calc 117.21, Est GFR (MDRD) Af Amer 153, Est GFR (MDRD) Non-Af 126, BUN/Creatinine Ratio 23.1 H, Glucose 68 L, Calcium 8.1 L, Magnesium 1.8 Current Medications Acetaminophen (Tylenol) 650 mg PO Q6H PRN PRN PRN Reason: Mild Pain (1-3)/Temp > 100.7 F Al Hydroxide/Mg Hydroxide (Mylanta Ii) 30 ml PO Q6H PRN PRN PRN Reason: dyspesia Bisacodyl (Dulcolax) 10 mg RECTAL DAILY PRN PRN PRN Reason: Constipation Dicyclomine HCl (Bentyl) 20 mg PO Q6H PRN PRN PRN Reason: abdominal discomfort Famotidine (Pepcid) 20 mg PO BID [facility] Last Admin: 04/19/20 09:18 Dose: 20 mg Documented by: Fluoxetine HCl (Prozac) 40 mg PO DAILY [facility] Last Admin: 04/19/20 09:18 Dose: 40 mg Documented by: Folic Acid (Folic Acid) 1 mg PO DAILY@0800 [facility] Last Admin: 04/19/20 09:18 Dose: 1 mg Documented by: Gabapentin (Neurontin) 300 mg PO Q8H PRN PRN PRN Reason: moderate to severe anxiety Last Admin: 04/18/20 01:12 Dose: 300 mg Documented by: Hydroxyzine Pamoate (Vistaril Pamoate Capsule) 50 mg PO Q4H PRN PRN PRN Reason: mild anxiety Ibuprofen (Motrin) 600 mg PO Q8H PRN PRN PRN Reason: Pain Score 1-10 Last Admin: 04/18/20 17:56 Dose: 600 mg Documented by: Loperamide HCl (Imodium) 2 mg PO Q4H PRN PRN PRN Reason: LOOSE STOOLS Multivitamins ([facility]itamin) [facility] Last Admin: 04/19/20 09:18 Dose: 1 tablet Documented by: Nicotine (Nicoderm Cq (Pbkc)) 21 mg TRANSDERM. DAILY [facility] Last Admin: 04/19/20 09:17 Dose: 21 mg Documented by: Ondansetron HCl (Zofran) 8 mg PO Q8H PRN PRN PRN Reason: NAUSEA Last Admin: 04/18/20 01:12 Dose: 8 mg Documented by: Phenobarbital (Phenobarbital) 64.8 mg PO Q4H [facility]; Taper Stop: 04/22/20 08:59 Last Admin: 04/19/20 09:17 Dose: 64.8 mg Documented by: Potassium Chloride (K-Dur) 40 [facility] Stop: 04/21/20 08:01 Last Admin: 04/19/20 09:17 Dose: 40 meq Documented by: Quetiapine Fumarate (Seroquel) 50 mg PO QHS [facility] Last Admin: 04/18/20 21:17 Dose: 50 mg Documented by: Senna (Senokot) 2 tablet PO QHS PRN PRN PRN Reason: Constipation Sodium Chloride () 10 - 40 ml IV UD PRN PRN Reason: SALINE FLUSH Thiamine HCl (Vitamin B1) [facility] Last Admin: 04/19/20 09:18 Dose: 100 mg Documented by: Trazodone HCl (Desyrel) 100 mg PO QHS PRN PRN PRN Reason: INSOMNIA Last Admin: 04/18/20 01:03 Dose: 100 mg Documented by: STROKE Vital Signs/Narrative: Vital Signs Temp Pulse Resp BP Pulse Ox 04/19/20 09:14 98.1 F 79 14 103/58 L 96 Medical Necessity - Tobacco Use Smoking Status: Current every day smoker Tobacco Use: Cigarettes Assessment/Plan All Active Problems (Last Updated 01/27/19 @ 01:[address] Chaparro Sultana MD) Sinus tachycardia seen on teletypesetter monitor (Acute) Alcohol dependence with withdrawal (Acute) Desire for detoxification (Acute) Alcohol intoxication (Acute) Alcohol abuse (Acute) Transaminitis (Acute) The patient is a 39 y/o F with history of polysubstance abuse, Anxiety and Depression with panic attacks, chronic alcohol use and withdrawal syndrome with last admission in January 2019 was admitted for acute alcohol withdrawal syndrome. 1. Acute alcohol withdrawal syndrome : Patient is being admitted on MedSurg floor. Patient on phenobarbitone regimen along with other supportive medications gabapentin, clonidine, Vistaril, Bentyl and antiemetics. 04/19: Her symptoms are better controlled. Potassium and magnesium are normal range. 2. acute on chronic alcoholic hepatitis: Patient ALT and AST are elevated 64/112. It has been elevated before, last 44/63 in January 2019. Patient denies history of hematemesis or melena but never had EGD. She had colonoscopy in the past. Does not have right upper quadrant tenderness or ascites. 3. Severe protein calorie malnutrition: Patient has moderate muscle atrophy of extremities and subcutaneous fat loss. BMI 20.2. Continue supplementation with Ensure, multivitamin, folic acid and thiamine as noted. Nutritional consult 4. Anxiety and depression, with panic attacks: continue Prozac, Seroquel, Vistaril, counseling with [facility]. 5. Tobacco Abuse: On nicotine patch. Patient is smokes a pack per day since teenage 5. Patient notes she has been clean for several months, denies any IV drug abuse, crack cocaine, methamphetamine or other drugs/substances. Notes recent HIV and hepatitis testing that was unremarkable. 7. DVT Prophylaxis: Low risk, ambulation. Microbiology Past 72 Hours 04/17/20 23:00 Urine, Clean Catch Urine Culture - Final Mixed Gram Positive Organisms Laboratory Results 04/19/20 08:35: Sodium 139, Potassium 3.7, Chloride 108 H, Carbon Dioxide 25.0, Anion Gap 6, BUN 13, Creatinine 0.56, Estim Creat Clear Calc 117.21, Est GFR (MDRD) Af Amer 153, Est GFR (MDRD) Non-Af 126, BUN/Creatinine Ratio 23.1 H, Glucose 68 L, Calcium 8.1 L, Magnesium 1.8 Inpatient E&M: 40110 Subs Hosp L2
[2020-04-19 12:33] VITALS: BP 96/46; PULSE 84; RESP 12; TEMP 36.8; O2SAT 98
[2020-04-19] MEDS: Ibuprofen 600 MG Tablet PO ×2 (12:37→22:13)
[2020-04-19] MEDS: Gabapentin 300 MG Capsule PO ×2 (12:37→22:13)
[2020-04-19] MEDS: 0.9% Saline Lock 10 ML Syringe IV (12:38)
[2020-04-19 16:53] VITALS: BP 98/59; PULSE 74; RESP 14; TEMP 36.8; O2SAT 97
[2020-04-19] MEDS: hydrOXYzine PAM 25 MG Capsule 50 MG PO (16:54)
[2020-04-19] MEDS: Methocarbamol 750 MG Tablet 1500 MG PO (18:23)
[2020-04-19 21:54] VITALS: BP 90/58; PULSE 80; RESP 14; TEMP 36.6; O2SAT 96
[2020-04-19] MEDS: QUEtiapine 25 MG Tablet 50 MG PO (22:13)
[2020-04-20 01:40] VITALS: BP 94/54; PULSE 75; RESP 16; TEMP 36.6; O2SAT 97
[2020-04-20] MEDS: Phenobarbital 32.4 MG Tablet 64.8 MG PO ×3 (01:41→10:01)
[2020-04-20] MEDS: 0.9% Saline Lock 10 ML Syringe IV (01:46)
--- NOTE | 2020-04-20 09:32 | PCM.PN.HOSP ---
Patient Problems: Active and Suspected Problems (Last Updated 01/27/19 @ 01:[address] Chaparro Sultana MD) Desire for detoxification (Acute) Alcohol intoxication (Acute) Alcohol abuse (Acute) Transaminitis (Acute) Objective: Patient is more awake alert and oriented x3. Heart rate and blood pressure are controlled. Physical exam General: Alert, Oriented x3, Cooperative HEENT: Atraumatic, PERRLA, EOMI, Normocephalic Oral: No Gingival or Mucosal Lesions/ Ulcerations Neck: Supple, No JVD, Negative Carotid Bruits Lungs: Air entry diminished in bilateral lung bases. No crepitation/rhonchi Cardiovascular: Regular rate, Regular Rhythm, Normal S1, Normal S2, No murmurs Abdomen: Bowel Sounds Present, Soft, Non Tender, Non-Distended : No renal angle tenderness. No suprapubic tenderness. Extremities: No edema, Capillary Refill Less than 3 Seconds Skin: No rashes, No breakdown Musculoskeletal: No Tenderness to Palpation of Joints or Extremities Neurological: Cranial nerves II-XII grossly intact, Deep Tendon Reflexes 2+/4 and Symmetrical, Neuro grossly intact Psych/Mental Status: Normal Affect, Appropriate. Vitals/I&O's: Vital Signs Temp Pulse Resp BP Pulse Ox 98 F 75 16 94/54 L 97 04/20/20 01:40 04/20/20 01:40 04/20/20 01:40 04/20/20 01:40 04/20/20 01:40 Oxygen Delivery Method Room Air Weight: 122 lb 9.232 oz Body Mass Index (BMI) 19.2 Intake and Output for Last 24 Hours 04/18/20 04/19/20 04/20/20 23:59 23:59 23:59 Intake Total 1250 / 1250 Balance 1250 / 1250 Microbiology Past 72 Hours 04/17/20 23:00 Urine, Clean Catch Urine Culture - Final Mixed Gram Positive Organisms Current Medications Acetaminophen (Tylenol) 650 mg PO Q6H PRN PRN PRN Reason: Mild Pain (1-3)/Temp > 100.7 F Al Hydroxide/Mg Hydroxide (Mylanta Ii) 30 ml PO Q6H PRN PRN PRN Reason: dyspesia Bisacodyl (Dulcolax) 10 mg RECTAL DAILY PRN PRN PRN Reason: Constipation Dicyclomine HCl (Bentyl) 20 mg PO Q6H PRN PRN PRN Reason: abdominal discomfort Famotidine (Pepcid) 20 mg PO BID [facility] Last Admin: 04/19/20 22:13 Dose: 20 mg Documented by: Fluoxetine HCl (Prozac) 40 mg PO DAILY [facility] Last Admin: 04/19/20 09:18 Dose: 40 mg Documented by: Folic Acid (Folic Acid) 1 mg PO DAILY@0800 [facility] Last Admin: 04/19/20 09:18 Dose: 1 mg Documented by: Gabapentin (Neurontin) 300 mg PO Q8H PRN PRN PRN Reason: moderate to severe anxiety Last Admin: 04/19/20 22:13 Dose: 300 mg Documented by: Hydroxyzine Pamoate (Vistaril Pamoate Capsule) 50 mg PO Q4H PRN PRN PRN Reason: mild anxiety Last Admin: 04/19/20 16:54 Dose: 50 mg Documented by: Ibuprofen (Motrin) 600 mg PO Q8H PRN PRN PRN Reason: Pain Score 1-10 Last Admin: 04/19/20 22:13 Dose: 600 mg Documented by: Loperamide HCl (Imodium) 2 mg PO Q4H PRN PRN PRN Reason: LOOSE STOOLS Methocarbamol (Methocarbamol) 1,500 mg PO TID PRN PRN Reason: MUSCLE SPASM Last Admin: 04/19/20 18:23 Dose: 1,500 mg Documented by: [facility]ivit[facility] ([facility]amin) [facility] Last Admin: 04/19/20 09:18 Dose: 1 tablet Documented by: Nicotine (Nicoderm Cq (Pbkc)) 21 mg TRANSDERM. DAILY [facility] Last Admin: 04/19/20 09:17 Dose: 21 mg Documented by: Ondansetron HCl (Zofran) 8 mg PO Q8H PRN PRN PRN Reason: NAUSEA Last Admin: 04/18/20 01:12 Dose: 8 mg Documented by: Phenobarbital (Phenobarbital) 64.8 mg PO Q6H [facility]; Taper Stop: 04/22/20 08:59 Last Admin: 04/20/20 05:25 Dose: 64.8 mg Documented by: Potassium Chloride (K-Dur) [facility] Stop: 04/21/20 08:01 Last Admin: 04/19/20 09:17 Dose: 40 meq Documented by: Quetiapine Fumarate (Seroquel) 50 mg PO QHS [facility] Last Admin: 04/19/20 22:13 Dose: 50 mg Documented by: Senna (Senokot) 2 tablet PO QHS PRN PRN PRN Reason: Constipation Sodium Chloride () 10 - 40 ml IV UD PRN PRN Reason: SALINE FLUSH Last Admin: 04/20/20 01:46 Dose: 10 ml Documented by: Thiamine HCl (Vitamin B1) 100 mg PO DAILYCM [facility] Last Admin: 04/19/20 09:18 Dose: 100 mg Documented by: Trazodone HCl (Desyrel) 100 mg PO QHS PRN PRN PRN Reason: INSOMNIA Last Admin: 04/18/20 01:03 Dose: 100 mg Documented by: Medical Necessity - Tobacco Use Smoking Status: Current every day smoker Tobacco Use: Cigarettes Assessment/Plan All Active Problems (Last Updated 01/27/19 @ 01:[address] 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 1. Acute alcohol withdrawal syndrome : Patient is being admitted on MedSurg floor. Patient on phenobarbitone regimen along with other supportive medications gabapentin, clonidine, Vistaril, Bentyl and antiemetics. 04/19: Her symptoms are better controlled. Potassium and magnesium are normal range. 04/20: Patient symptoms are controlled. More awake and alert. She has about 1 more day of phenobarbital scheduled. She was on inpatient alcohol rehab last time. 2. acute on chronic alcoholic hepatitis: Patient ALT and AST are elevated 64/112. It has been elevated before, last in January 2019. Patient denies history of hematemesis or melena but never had EGD. She had colonoscopy in the past. Does not have right upper quadrant tenderness or ascites. 3. Severe protein calorie malnutrition: Patient has moderate muscle atrophy of extremities and subcutaneous fat loss. BMI 20.2. Continue supplementation with Ensure, multivitamin, folic acid and thiamine as noted. Nutritional consult 4. Anxiety and depression, with panic attacks: continue Prozac, Seroquel, Vistaril, counseling with [facility]. 5. Tobacco Abuse: On nicotine patch. Patient is smokes a pack per day since teenage 6. Patient notes she has been clean for several months, denies any IV drug abuse, crack cocaine, methamphetamine or other drugs/substances. Notes recent HIV and hepatitis testing that was unremarkable. 7. DVT Prophylaxis: Low risk, ambulation. Microbiology Past 72 Hours 04/17/20 23:00 Urine, Clean Catch Urine Culture - Final Mixed Gram Positive Organisms Laboratory Results 04/19/20 08:35: Sodium 139, Potassium 3.7, Chloride 108 H, Carbon Dioxide 25.0, Anion Gap 6, BUN 13, Creatinine 0.56, Estim Creat Clear Calc 117.21, Est GFR (MDRD) Af Amer 153, Est GFR (MDRD) Non-Af 126, BUN/Creatinine Ratio 23.1 H, Glucose 68 L, Calcium 8.1 L, Magnesium 1.8 Inpatient E&M: 05021 Subs Hosp L2
[2020-04-20] MEDS: Folic Acid 1 MG Tablet PO (09:59)
[2020-04-20 10:00] VITALS: BP 143/64; PULSE 68; RESP 18; TEMP 36.7; O2SAT 98
[2020-04-20] MEDS: Multivitamins,Therapeutic Tablet 1 TABLET PO (10:00)
[2020-04-20] MEDS: Famotidine 20 MG Tablet PO (10:00)
[2020-04-20] MEDS: Thiamine Hydrochloride 100 MG Tablet PO (10:01)
[2020-04-20] MEDS: FLUoxetine 20 MG Capsule 40 MG PO (10:01)
--- NOTE | 2020-04-20 14:13 | NURSING ---
pt adament that she is leaving, leaving today, everyone else got to leave today and she is too, nurse explained her scores warrant her staying here and staying on the taper-pt grows more anxious and loud when staff tried to encourage her to stay-staff then printed the AMA sheet and given belongings
--- NOTE | 2020-04-20 16:11 | DS.PCM_ITS ---
Discharge Date and Diagnosis Date of Admission: 04/17/20 Date of Discharge: 04/20/20 - Secondary Discharge Diagnosis Chronic Problems: Chronic Problems (Last Updated 01/27/19 @ 01:[address] Chaparro Sultana MD) Alcoholism /alcohol abuse (Chronic) Anxiety and depression (Chronic) Panic attacks (Chronic) Severe malnutrition (Chronic) Tobacco use (Chronic) Elevated LFTs (Chronic) Hospital Course and Treatment Operations: None Summary of Care Provided: [] The patient is a 39 y/o F with history of polysubstance abuse, Anxiety and Depression with panic attacks, chronic alcohol use and withdrawal syndrome with last admission in January 2019 was admitted for acute alcohol withdrawal syndrome. [facility]. Her symptoms were well controlled on the phenobarbital regimen with taper along with other supportive medications. She was in inpatient alcohol rehab prior to admission and she relapsed. She was supposed to stay 1 more day to finish her phenobarbital regimen but she signed AMA. She was cautioned about the risk of signing AMA. She also has acute on chronic alcoholic hepatitis. Severe protein calorie malnutrition: Anxiety and depression, with panic attacks: Tobacco Abuse: On nicotine patch. Patient is smokes a pack per day since teenage Objective: The patient was seen and examined on the date she signed AMA. Please see the progress note of the same date for physical findings. - Physical Exam Vitals/I&O's: Vital Signs Temp Pulse Resp BP Pulse Ox 98.1 F 68 18 143/64 H 98 04/20/20 10:00 04/20/20 10:00 04/20/20 10:00 04/20/20 10:00 04/20/20 10:00 Oxygen Delivery Method Room Air Weight: 122 lb 9.232 oz Body Mass Index (BMI) 19.2 Intake and Output for Last 24 Hours 04/18/20 04/19/20 04/20/20 23:59 23:59 23:59 Intake Total 1250 / 1250 Balance 1250 / 1250 Microbiology Past 72 Hours 04/17/20 23:00 Urine, Clean Catch Urine Culture - Final Mixed Gram Positive Organisms Home Medications: Medications to take at Discharge Acetaminophen [Tylenol Tablet] 650 mg PO Q6H PRN PRN tab 01/29/19 Fluoxetine HCl [Prozac] 40 mg PO DAILY 02/19/20 Hydroxyzine Pamoate [Vistaril] 100 mg PO BID PRN PRN 02/19/20 Quetiapine Fumarate [Seroquel] 50 mg PO QHS 02/19/20 Primary Care Physician: Tami Feliz FREELANCE DIGITAL PROJECT MANAGER, F[employer]EL[employer] DIGITAL PROJECT MANAGER-[employer] [Primary Care Provider] - Medical Necessity - Tobacco Use Smoking Status: Current every day smoker Tobacco Use: Cigarettes Meaningful Use Info Meaningful Use Diagnoses (Choose all that apply): None applicable Please cancel the billing charge of progress note of the same date. Inpatient E&M: 61479 Disch Hosp
== END 2020-04-20 14:24 | disposition left against medical advice (07) | DRG 770 ==
LOC: ED 22:59 → MS3 04-18 00:12
PROVIDERS: Admitting Provider Family Medicine; Emergency Provider Emergency Medicine; PCP Nurse Practitioner Family; Visit Provider Internal Medicine
DX: F10.239 Alcohol dependence with withdrawal, unspecified (principal); F10.229 Alcohol dependence with intoxication, unspecified; Y90.8 Blood alcohol level of 240 mg/100 ml or more; F17.213 Nicotine dependence, cigarettes, with withdrawal; K70.10 Alcoholic hepatitis without ascites; R30.0 Dysuria; F41.0 Panic disorder [episodic paroxysmal anxiety]; F32.9 Major depressive disorder, single episode, unspecified; E43 Unspecified severe protein-calorie malnutrition; Z68.20 Body mass index [BMI] 20.0-20.9, adult; Z79.899 Other long term (current) drug therapy; Z85.3 Personal history of malignant neoplasm of breast
CPT/HCPCS: 36415; 80048; 80053; 80307; 80320; 81001; 83735; 84100; 84703; 85025; 87086; 87088; 99284; J7120; A4216; G0480

== ENCOUNTER → 2020-04-26 11:13 | Emergency (ER) ==
--- NOTE | 2020-04-26 11:32 | ED.DCSUM_ITS ---
History of Present Illness Chief Complaint: Substance Abuse Detail of Chief Complaint: EtOH detox Informant: Patient Onset: Today Narrative: Patient presents requesting detox from alcohol. She drinks 1 to 2 gallons of vodka a day. Her last drink was 2-1/2 hours ago. She does report having withdrawal in the past and having seizures with her DTs. Patient was recently in the hospital for the same and signed out AGAINST MEDICAL ADVICE on the . She states that she had a drink before she even got home that day. She has been in contact with [facility] and states multiple staff numbers there told her to come back to the hospital for admission and detox. - Past Medical History (1) Alcohol abuse Status: Chronic (2) Anxiety and depression Status: Chronic Past Medical History - Allergies and Home Meds Allergies/Adverse Reactions: Allergies sulfamethoxazole [From Bactrim] Adverse Reaction (Verified 04/26/20 11:19) Nausea/Vom/Diarrhea trimethoprim [From Bactrim] Adverse Reaction (Verified 04/26/20 11:19) Nausea/Vom/Diarrhea Primary Care Physician: Tami Feliz PROFESSOR OF MARKETING, PROFESSOR OF MARKETING-C [Primary Care Provider] - Prior records reviewed: Yes Surgical History: tonsillectomy, - - section x 2, bilateral tubal ligation, cholecystectomy, tonsillectomy, breast biopsy noted to be benign on pathology. Smoking Status: Current every day smoker - Family History Maternal Family History: Reports: Diabetes Paternal Family History: Reports: Hypertension Review of Systems General: Denies: Chills, Fever Eyes: Denies: Visual changes - bilaterally ENT: Denies: Bilateral ear pain Cardiovascular: Denies: Chest pain Respiratory: Denies: Dyspnea, Cough Gastrointestinal: Denies: Abdominal pain Musculoskeletal: Reports: Back pain Skin: Denies: Rash Neurological: Denies: Headache Psych: Reports: Anxiety Hematologic: Denies: Easy bruising, Easy bleeding Allergy: Denies: Uticaria Physical Exam Vital Signs/Narrative: Vital Signs Temp Pulse Resp BP Pulse Ox 04/26/20 11:16 96.2 F L 104 H 16 129/79 H 99 Inital Vital Signs reviewed: Yes General: Well nourished, Well developed Head: Normocephalic ENT: Moist mucous membranes Neck: Supple Cardiovascular: Regular rhythm, Tachycardia Respiratory: No distress, CTA bilaterally Abdomen: Soft, Nontender Back: - - Tenderness over the sacrum with focal bruising. Extremities: Nontender Skin: - - As above Neurological: Alert, Oriented x3, - - No focal neuro deficits. Psychological: Agitated, - - Patient is anxious and pacing about the room. Diagnostic/Tx/Re-eval - Medical Decision Making Addiction medicine labs were ordered and patient was ordered Ativan. When the nurse went back to start her IV she asked for moment as she was making a phone call. Nurse states she then walked out and stated that she wished to leave and did not want to be admitted. She did state that she may go to a different hospital for admission. At this time she was a voluntary admission and she was allowed to leave the emergency room. ED Disposition - Plan for ED Patient: Disposition: Home or Assisted Living Diagnosis: Alcoholism Referrals: Tami Feliz NP, PROFESSOR OF MARKETING-C [Primary Care Provider] -
[2020-04-26 11:56] LABS: Amphetamine Urine VISTA NEGATIVE (<1000 ng/mL); Barbiturate Urine VISTA POSITIVE (< 200 ng/mL); Benzodiazepine Urine VISTA NEGATIVE (< 200 ng/mL); Cocaine Urine VISTA NEGATIVE (< 300 ng/mL); Ecstacy Urine VISTA NEGATIVE (< 500 ng/mL); Methadone Urine VISTA NEGATIVE (< 300 ng/mL); PCP Urine VISTA NEGATIVE (< 25 ng/mL); THC Urine VISTA POSITIVE (< 50 ng/mL); Vista UDS pH Range 6
== END | disposition home or self-care (01) ==
PROVIDERS: Emergency Medicine
DX: F10.20 Alcohol dependence, uncomplicated (principal); F17.200 Nicotine dependence, unspecified, uncomplicated
CPT/HCPCS: 80307; 99281; 99284